=== PATIENT | male | born 1955 | race Caucasian/White ===

== ENCOUNTER 2018-12-23 09:51 | Inpatient (IN) ==
[2018-12-23] MEDS ORDERED: LORazepam 1 MG TABLET PO ONE (10:12)
[2018-12-23] MEDS ORDERED: POTASSIUM CHLORIDE 20 MEQ, MAGNESIUM SULFATE 16.24 MEQ, THIAMINE 100 MG, MVI, ADULT NO.... IV SCH (10:30)
[2018-12-23] MEDS ORDERED: LORazepam 2 MG/ML VIAL IV ONE ×2 (10:33→10:59)
[2018-12-23] MEDS ORDERED: 0.9 % SODIUM CHLORIDE 1,000 ML IV ONE (10:34)
[2018-12-23] MEDS ORDERED: ONDANSETRON 4 MG/2 ML VIAL IV ONE (10:51)
[2018-12-23 11:14] LABS: Basophils # (Auto) 0 K/mcL (0.0-0.3); Basophils % (Auto) 0.3 % (0.0-2.0); Eosinophils # (Auto) 0.1 K/mcL (0.0-0.7); Eosinophils % (Auto) 2.1 % (0.0-7.0); Granulocytes % (Auto) 72.7 % (38.0-78.0); Hematocrit 41.6 % (41.0-55.0); Hemoglobin 14.2 g/dL (13.5-16.5); Lymphocytes # (Auto) 0.7 K/mcL (1.5-4.8); Lymphocytes % (Auto) 15.1 % (15.5-49.0); Mean Cell Volume 96.5 fL (80.0-100.0); Mean Corpuscular HGB Conc 34.2 g/dL (31.0-36.0); Mean Platelet Volume 6.1 fL (7.4-10.4); Monocytes # (Auto) 0.4 K/mcL (0.1-0.9); Monocytes % (Auto) 9.8 % (1.0-12.0); Platelet Count 102 K/mcL (140-440); RBC 4.31 M/mcL (4.50-5.90); Red Cell Distribution Width 17.2 % (11.5-14.5); WBC 4.6 K/mcL (4.5-11.0)
[2018-12-23 11:23] LABS: Alcohol,Blood 0.11 gm/dl (<0.010)
[2018-12-23 11:33] LABS: ALT/SGPT 12 U/l (0-40); AST/SGOT 16 U/l (0-37); Albumin 3.6 gm/dL (3.2-5.2); Albumin/Globulin Ratio 1.5 (1.0-2.3); Alkaline Phosphatase 72 U/L (39-117); Bilirubin,Total 0.7 mg/dL (0.0-1.0); Blood Urea Nitrogen 12 mg/dl (8-23); Calcium 8.3 mg/dl (8.6-10.4); Carbon Dioxide 20 mmol/L (22-30); Chloride 102 mmol/L (96-108); Globulin 2.4 gm/dL (2.2-3.7); Glomerular Filtration Rate 58; Glucose 129 mg/dL (70-105)
--- NOTE | 2018-12-23 11:51 | Emergency Department Note ---
Alcohol HPI - General Chief Complaint: Alcohol Stated Complaint: "Alcohol Withdrawal" Time Seen by Provider: 12/23/18 10:00 Source: patient Mode of arrival: ambulatory Limitations: no limitations - History of Present Illness HPI Narrative: 63-year-old male presents requesting help for alcohol withdrawal. Has severe tremors. States he was seizing all night so he took a couple shots of alcohol this morning to be able to get himself to come here. States he is been cutting back on drinking for the last week especially the last 5 days. Was seen at [facility] yesterday. They set him up with an appointment with a new data processing specialist however he cannot get into see her until January 03. States he needs help in the meantime and does not know where to go. Has nausea and vomiting, tremors, and seizures. This is all new since trying to stop drinking alcohol. States he normally drinks at least 1/5 a day. He is tired of being an alcoholic and feeling the way he does not really wants to stop drinking. States someone gave him a couple tabs of Ativan for his nausea but he only has one left and he has been trying to spread them out every couple days to get through because he only had 3 of them and that does seem to help his nausea little bit but not with the tremors or seizures. Apparently he only had three 1 mg tablets. - Related Data Home Medications Medication Instructions Recorded Confirmed Hydrocodone/APAP 7.5/325Mg [[place] 1 - 2 tab PO Q4HP PRN 05/24/15 05/24/15 7.5-325Mg] Lisinopril [Zestril] 10 mg PO HS 05/24/15 05/24/15 Lisinopril/Hctz 20/12.5MG 1 tablet PO DAILY 05/24/15 05/24/15 [Zestoretic 20/12.5MG] Omeprazole [PriLOSEC] 20 mg PO ACB 05/24/15 05/24/15 Venlafaxine [Effexor] 75 mg PO BID 05/24/15 05/24/15 traZODone HCL [Desyrel] 100 mg PO HS 05/24/15 05/24/15 Previous Rx's Medication Instructions Recorded LORazepam [Ativan] 1 mg PO Q4HP PRN #10 tab 05/23/18 Ondansetron [Zofran ODT] 4 mg SL Q4-6HP PRN #10 tab 05/23/18 Pantoprazole [Protonix] 40 mg PO ONCE #10 tab 05/23/18 LORazepam [Ativan] 1 mg PO TIDP PRN #10 tab 12/08/18 Allergies Allergy/AdvReac Type Severity Reaction Status Date / Time prednisone Allergy Mild Other Verified 12/23/18 09:53 Review of Systems All systems ED: reviewed and negative except as stated. Past Medical History - Past Medical History Medical history: Reports: GERD, hypertension, other (psoriasis, C. difficile) Surgical history ED: Reports: other (Abdominal surgery unclear kind, he has multiple hernias) - Social History smoking status: Former smoker Alcohol use: Reports: Frequently, Daily, Recent Drug use: Reports: marijuana Physical Exam Limitations: no limitations General appearance: alert Head: atraumatic, normocephalic, normal inspection Eye: Present: normal appearance. Absent: conjunctival injection ENT: Present: mucous membranes moist Chest: Present: symmetric chest wall rise Respiratory: Present: normal lung sounds bilaterally. Absent: respiratory distress, rales/crackles, accessory muscle use Cardiovascular: Present: tachycardia, normal heart sounds Abdominal: Present: soft, normal bowel sounds. Absent: distention, tenderness, guarding, mass Extremities: Present: normal inspection Neurological: Present: alert, oriented X3, other (Severe tremors) Patient oriented to: Present: person, place, time Speech: Present: fluid speech Coma Scale Eye Opening: Spontaneous Coma Scale Motor Response: Obeys Commands Coma Scale Verbal Response: Oriented Coma Scale Total: 15 Psychiatric: Present: flat affect, tearful. Absent: homicidal ideation, suicidal ideation Skin: Present: warm, dry, intact, normal color Course Course Narrative: @123 Dr. Cee agrees to accept pt Vital Signs Temperature 97.9 F 12/23/18 09:53 Pulse Rate 109 H 12/23/18 09:53 Respiratory Rate 22 12/23/18 09:53 Blood Pressure 142/89 12/23/18 09:53 Pulse Oximetry (%) 98 12/23/18 09:53 Temperature 97.9 F 12/23/18 09:53 Pulse Rate 89 12/23/18 12:30 Respiratory Rate 22 12/23/18 12:30 Blood Pressure 125/84 12/23/18 12:15 Pulse Oximetry (%) 97 12/23/18 12:30 Alcohol - Medical Records Medical records reviewed: Yes I reviewed the patient's medical records. - Lab Data Result diagrams: 12/23/18 10:28 12/23/18 10:28 Lab Results 12/23/18 12/23/18 12/23/18 Range/Units 10:28 10:28 10:28 WBC 4.6 (4.5-11.0) K/mcL RBC 4.31 L (4.50-5.90) M/mcL Hgb 14.2 (13.5-16.5) g/dL Hct 41.6 (41.0-55.0) % MCV 96.5 (80.0-100.0) fL MCH 33.0 (26.0-34.0) pg MCHC 34.2 (31.0-36.0) g/dL RDW 17.2 H (11.5-14.5) % Plt Count 102 L (140-440) K/mcL MPV 6.1 L (7.4-10.4) fL Gran % 72.7 (38.0-78.0) % Lymph % (Auto) 15.1 L (15.5-49.0) % [place] % (Auto) 9.8 (1.0-12.0) % Eos % (Auto) 2.1 (0.0-7.0) % Baso % (Auto) 0.3 (0.0-2.0) % Gran # 3.3 (1.8-8.0) K/mcL Lymph # (Auto) 0.7 L (1.5-4.8) K/mcL [place] # (Auto) 0.4 (0.1-0.9) K/mcL Eos # (Auto) 0.1 (0.0-0.7) K/mcL Baso # (Auto) 0 (0.0-0.3) K/mcL Sodium 139 (133-145) mmol/L Potassium 3.7 (3.3-5.1) mmol/L Chloride 102 (96-108) mmol/L Carbon Dioxide 20 L (22-30) mmol/L Anion Gap 17.0 H (8-16) BUN 12 (8-23) mg/dl Creatinine 1.3 H (0.7-1.2) mg/dl GFR Calculation 58 Glucose 129 H (70-105) mg/dL Calcium 8.3 L (8.6-10.4) mg/dl Magnesium 1.9 (1.6-2.5) mg/dL Total Bilirubin 0.7 (0.0-1.0) mg/dL AST 16 (0-37) U/l ALT 12 (0-40) U/l Alkaline Phosphatase 72 (39-117) U/L Troponin T (0-0.03) ng/ml Total Protein 6.0 (5.9-8.4) gm/dL Albumin 3.6 (3.2-5.2) gm/dL Globulin 2.4 (2.2-3.7) gm/dL Albumin/Globulin Ratio 1.5 (1.0-2.3) Lipase 19 (7-60) U/L Urine Color Urine Appearance Urine pH (5.0-9.0) Ur Specific [place] (1.000-1.035) Urine Protein (NEG) mg/dL Urine Glucose (UA) (NEG) mg/dL Urine Ketones (NEG) mg/dL Urine Occult Blood (<0.03) mg/dL Urine Nitrate (NEG) Urine Bilirubin (NEG) mg/dL Urine Urobilinogen (NEG) mg/dL Ur Leukocyte Esterase (NEG) /uL Ur Culture Indicated? Urine Opiates Screen (NONDETECTED) Ur Oxycodone Screen (NONDETECTED) Urine Methadone Screen (NONDETECTED) Ur Barbiturates Screen (NONDETECTED) Ur Phencyclidine Scrn (NONDETECTED) Ur Amphetamines Screen (NONDETECTED) U Benzodiazepines Scrn (NONDETECTED) Urine Cocaine Screen (NONDETECTED) U Marijuana (THC) Screen (NONDETECTED) Ethyl Alcohol 0.110 H (<0.010) gm/dl 12/23/18 12/23/18 12/23/18 Range/Units 10:28 11:45 11:45 WBC (4.5-11.0) K/mcL RBC (4.50-5.90) M/mcL Hgb (13.5-16.5) g/dL Hct (41.0-55.0) % MCV (80.0-100.0) fL MCH (26.0-34.0) pg MCHC (31.0-36.0) g/dL RDW (11.5-14.5) % Plt Count (140-440) K/mcL MPV (7.4-10.4) fL Gran % (38.0-78.0) % Lymph % (Auto) (15.5-49.0) % [place] % (Auto) (1.0-12.0) % Eos % (Auto) (0.0-7.0) % Baso % (Auto) (0.0-2.0) % Gran # (1.8-8.0) K/mcL Lymph # (Auto) (1.5-4.8) K/mcL [place] # (Auto) (0.1-0.9) K/mcL Eos # (Auto) (0.0-0.7) K/mcL Baso # (Auto) (0.0-0.3) K/mcL Sodium (133-145) mmol/L Potassium (3.3-5.1) mmol/L Chloride (96-108) mmol/L Carbon Dioxide (22-30) mmol/L Anion Gap (8-16) BUN (8-23) mg/dl Creatinine (0.7-1.2) mg/dl GFR Calculation Glucose (70-105) mg/dL Calcium (8.6-10.4) mg/dl Magnesium (1.6-2.5) mg/dL Total Bilirubin (0.0-1.0) mg/dL AST (0-37) U/l ALT (0-40) U/l Alkaline Phosphatase (39-117) U/L Troponin T < 0.01 (0-0.03) ng/ml Total Protein (5.9-8.4) gm/dL Albumin (3.2-5.2) gm/dL Globulin (2.2-3.7) gm/dL Albumin/Globulin Ratio (1.0-2.3) Lipase (7-60) U/L Urine Color Yellow Urine Appearance Clear Urine pH 6.0 (5.0-9.0) Ur Specific [place] 1.017 (1.000-1.035) Urine Protein Neg (NEG) mg/dL Urine Glucose (UA) Negative (NEG) mg/dL Urine Ketones Neg (NEG) mg/dL Urine Occult Blood Neg (<0.03) mg/dL Urine Nitrate Neg (NEG) Urine Bilirubin Neg (NEG) mg/dL Urine Urobilinogen 2.0 A (NEG) mg/dL Ur Leukocyte Esterase Neg (NEG) /uL Ur Culture Indicated? No Urine Opiates Screen None detected (NONDETECTED) Ur Oxycodone Screen None detected (NONDETECTED) Urine Methadone Screen None detected (NONDETECTED) Ur Barbiturates Screen None detected (NONDETECTED) Ur Phencyclidine Scrn None detected (NONDETECTED) Ur Amphetamines Screen None detected (NONDETECTED) U Benzodiazepines Scrn None detected (NONDETECTED) Urine Cocaine Screen None detected (NONDETECTED) U Marijuana (THC) Screen Suspect positive A (NONDETECTED) Ethyl Alcohol (<0.010) gm/dl Disposition Pt seen by PROCESS EQUIPMENT OPERATOR/PA only: Yes Clinical Impression: Alcohol withdrawal delirium, Alcohol dependence Disposition: Xfer As Inpt ([facility]) Condition: Serious Referrals: Nikki Bee ARNP [Primary Care Provider] - Time of Disposition: 12:35
[2018-12-23 12:19] LABS: Appearance,Urine CLEAR; Bilirubin,Urine NEG (NEG); Color,Urine YELLOW; Culture Indicated,Urine NO; Glucose,Urine (UA) NEGATIVE (NEG); Ketones,Urine NEG (NEG); Leukocyte Esterase,Urine NEG /uL (NEG); Nitrate,Urine NEG (NEG); Protein,Urine NEG (NEG); Specific Gravity,Urine 1.017 (1.000-1.035); Urine Blood NEG mg/dL (<0.03)
[2018-12-23 12:31] LABS: Amphetamine Screen,Urine NONE DETECTED (NONDETECTED); Barbiturate Screen,Urine NONE DETECTED (NONDETECTED); Benzodiazepines Screen,Urine NONE DETECTED (NONDETECTED); Cannabinoid Screen,Urine SUSPECT POSITIVE (NONDETECTED); Cocaine Screen,Urine NONE DETECTED (NONDETECTED); Opiate Screen,Urine NONE DETECTED (NONDETECTED); Oxycodone, Urine Screen NONE DETECTED (NONDETECTED); Phencyclidine Screen,Urine NONE DETECTED (NONDETECTED)
--- NOTE | 2018-12-23 12:42 | Emergency Department Note ---
ED Note Addendum Note Addendum: I saw this patient with Julisa ZAVALA. I agree with her evaluation management documentation. In particular I saw this patient on 08 December and he had talked about cutting back on alcohol withdrawal type symptoms. I given him some Ativan. I reviewed that note. Anyways, today he came back and again was withdrawing but was having some trouble at home seizures. It does sound like he will need to come in the hospital for further evaluation and care for complicated withdrawal symptoms of alcohol. He does want to stop drinking. Patient was treated here in the ER, I did briefly visit with him, and then he would be transferred to the floor to the care of Dr. Jaime, hospitalist
--- NOTE | 2018-12-23 12:44 | Internal Med History&Physical ---
Medical - H&P: [facility] Patient information: Note initiated : 12/23/18 at 12:41 pm Service Date, if different from initiated Date: [] Patient: Elliott Traylor a 63 y/o M admitted on for "Alcohol Withdrawal". Chief Complaint: [] Chief complaint: Tremors and weakness History of present illness: Mr. Traylor is a 63 year old M with a history of long-standing alcohol dependence who presents to the ER for voluntary assistance with alcohol withdrawal. Patient has been drinking 1/5 of spiced rum every day. He however has become extremely distressed about his symptoms of withdrawal including tremors shaking nausea. He had a fall recently sustained a head injury which was evaluated in ER. He was at [facility] the day prior to presentation to help with withdrawal symptoms and was discharged on oral Ativan/antiemetics. He however was unable to cope with continued hallucinations/tremors/irritability and endorses to multiple episodes of seizures last night. He appears highly motivated to quit drinking and endorses that he has successfully done so in the recent past from May until September until he relapsed again. He denies family support, he lives alone. Initial work-up in the ER was essentially unremarkable. Patient was started on CIWA protocol with initial score 18. Review of systems 10 point review of system was performed and is negative except for one discussed above Medical - H&P: PM Medical history: History of duodenal ulcer Chronic alcoholism Posttraumatic stress disorder Hypertension History of C. difficile Anxiety disorder GERD Surgical history: Duodenal ulcer repair Knee surgery Smoking status: Current every day smoker Alcohol use: heavy Medical - H&P: Meds Home Medications Medication Instructions Recorded Confirmed Type Omeprazole [PriLOSEC] 20 mg PO ACB 05/24/15 12/23/18 History LORazepam [Ativan] 1 mg PO Q4HP PRN #10 tab 05/23/18 12/23/18 Rx Ondansetron [Zofran ODT] 4 mg SL Q4-6HP PRN #10 tab 05/23/18 12/23/18 Rx Folic Acid 1 mg PO DAILY 12/23/18 12/23/18 History Lisinopril/Hydrochlorothiazide 1 each PO DAILY 12/23/18 12/23/18 History [Lisinopril-Hctz 10-12.5 mg Tab] busPIRone [Buspar] 5 mg PO BID 12/23/18 12/23/18 History hydrOXYzine [Atarax] 25 mg PO TID 12/23/18 12/23/18 History Allergies Allergy/AdvReac Type Severity Reaction Status Date / Time prednisone Allergy Mild Other Verified 12/23/18 09:53 Medical - H&P: Exam - Constitutional Vitals: Temp Pulse Resp BP Pulse Ox 97.9 F 89 22 125/84 97 12/23/18 09:53 12/23/18 12:30 12/23/18 12:30 12/23/18 12:15 12/23/18 12:30 General appearance: moderate distress Exam: Head normocephalic Scaly scalp Lateral nystagmus but symmetrical eye movement Oral cavity dry No ear nose discharge Neck no lymph apathy S1-S2 regular rhythm Diminished breath sounds bases Abdomen soft nontender Lower extremity no sinus clubbing no joint swelling Skin no suspicious lesion Psych anxious and tremulous, occasional visual estimation Neuro nonfocal Medical - H&P: Reslt - Labs CBC & Chem 7: 12/24/18 03:30 12/24/18 03:30 Labs: Short CBC 12/23/18 Range/Units 10:28 WBC 4.6 (4.5-11.0) K/mcL Hgb 14.2 (13.5-16.5) g/dL Hct 41.6 (41.0-55.0) % Plt Count 102 L (140-440) K/mcL BMP 12/23/18 10:28 Sodium 139 Potassium 3.7 Chloride 102 Carbon Dioxide 20 L BUN 12 Creatinine 1.3 H Glucose 129 H Calcium 8.3 L Cardiac Enzymes 12/23/18 Range/Units 10:28 Troponin T < 0.01 (0-0.03) ng/ml Liver Function 12/23/18 Range/Units 10:28 Total Bilirubin 0.7 (0.0-1.0) mg/dL AST 16 (0-37) U/l ALT 12 (0-40) U/l Alkaline Phosphatase 72 (39-117) U/L Albumin 3.6 (3.2-5.2) gm/dL Urine 12/23/18 Range/Units 11:45 Urine Color Yellow Urine Appearance Clear Urine pH 6.0 (5.0-9.0) Ur Specific [place] 1.017 (1.000-1.035) Urine Protein Neg (NEG) mg/dL Urine Glucose (UA) Negative (NEG) mg/dL Medical - H&P: A/P (1) Delirium tremens Current visit: Yes Status: Acute * Delirium tremens-alcohol withdrawal management per protocol. Seizure watch/IV benzodiazepines/elect light management/crystalloids. ICU admit * History of hypertension-continue home dose MONSE inhibitor * History of peptic ulcer disease continue PPI * Tobacco dependence-counseling/patch * Full code * Prophylaxis heparin Plan * ICU admit in the setting of DT * Alcohol withdrawal monitoring * Seizure watch * Nutrition support * PT OT (2) Alcohol withdrawal delirium Current visit: Yes Status: Acute
[2018-12-23] MEDS ORDERED: guaiFENesin/CODEINE 10 ML UDC PO PRN (13:33)
[2018-12-23] MEDS ORDERED: POTASSIUM CHLORIDE 40 MEQ in DEXTROSE 5% IN WATER 500 ML IV PRN (13:33)
[2018-12-23] MEDS ORDERED: ONDANSETRON 4 MG/2 ML VIAL IV PRN (13:33)
[2018-12-23] MEDS ORDERED: MAGNESIUM SULFATE 2 GM/50 ML BAG IV PRN (13:33)
[2018-12-23] MEDS ORDERED: POTASSIUM CHLORIDE 20 MEQ PACKET PO PRN (13:33)
[2018-12-23] MEDS ORDERED: LORazepam 2 MG/ML VIAL ONE (13:51)
[2018-12-23] MEDS: 0.9 % SODIUM CHLORIDE 1,000 ML IV SCH (13:53)
[2018-12-23] MEDS: LORazepam 2 MG/ML VIAL IV PRN ×5 (13:53→21:27)
[2018-12-23] MEDS: ACETAMINOPHEN 325 MG TABLET PO PRN (14:24)
[2018-12-23] MEDS: 0.9 % SODIUM CHLORIDE 10 ML SYRINGE IV SCH ×4 (14:25→23:15)
[2018-12-23] MEDS: chlordiazePOXIDE 25 MG CAPSULE PO PRN ×3 (14:25→23:51)
[2018-12-23] MEDS: cloNIDine HCL 0.1 MG TABLET PO PRN (14:35)
[2018-12-23] MEDS: HEPARIN 5,000 UNIT/ML VIAL SQ SCH (19:17)
[2018-12-23] MEDS: DOCUSATE SODIUM 100 MG CAPSULE PO SCH (19:18)
[2018-12-23] MEDS: CYANOCOBALAMIN (VITAMIN B-12) 500 MCG TABLET PO SCH (19:19)
[2018-12-23] MEDS ORDERED: SENNOSIDES/DOCUSATE SODIUM 1 TAB TABLET PO SCH (21:00)
[2018-12-24] MEDS: LORazepam 2 MG/ML VIAL IV PRN (02:16)
[2018-12-24] MEDS: 0.9 % SODIUM CHLORIDE 1,000 ML IV SCH ×2 (02:21→14:09)
[2018-12-24] MEDS: chlordiazePOXIDE 25 MG CAPSULE PO PRN ×2 (03:59→09:00)
[2018-12-24] MEDS: 0.9 % SODIUM CHLORIDE 10 ML SYRINGE IV SCH ×7 (05:15→21:21)
[2018-12-24 05:36] LABS: Hematocrit 37.2 % (41.0-55.0); Hemoglobin 12.7 g/dL (13.5-16.5); Mean Cell Volume 97.7 fL (80.0-100.0); Mean Corpuscular HGB Conc 34.2 g/dL (31.0-36.0); Mean Platelet Volume 6.7 fL (7.4-10.4); Platelet Count 83 K/mcL (140-440); RBC 3.81 M/mcL (4.50-5.90); Red Cell Distribution Width 17.1 % (11.5-14.5); WBC 3.2 K/mcL (4.5-11.0)
[2018-12-24 05:54] LABS: ALT/SGPT 10 U/l (0-40); AST/SGOT 12 U/l (0-37); Albumin/Globulin Ratio 1.4 (1.0-2.3); Alkaline Phosphatase 70 U/L (39-117); Bilirubin,Direct < 0.2 mg/dL (0.0-0.3); Bilirubin,Total 0.5 mg/dL (0.0-1.0); Blood Urea Nitrogen 11 mg/dl (8-23); Calcium 8.1 mg/dl (8.6-10.4); Carbon Dioxide 23 mmol/L (22-30); Chloride 107 mmol/L (96-108); Globulin 2.2 gm/dL (2.2-3.7); Glomerular Filtration Rate 64; Glucose 138 mg/dL (70-105); Lactate Dehydrogenase 161 U/L (94-250); Phosphorous 2.5 mg/dL (2.7-4.5); Triglycerides 198 mg/dl (<150); Uric Acid 4.7 mg/dL (2.5-8.0)
[2018-12-24 06:32] LABS: Anisocytosis 1+ (NONE SEEN); Band Neutrophils % 2 % (0-10); Basophils % (Manual) 1 % (0-2); Eosinophils % (Manual) 12 % (0-7); Lymphocytes % 22 % (15-49); Monocytes % (Manual) 9 % (1-12); Platelet Estimate DECREASED (NORMAL); RBC Morphology ABNORM (NORMAL); Segmented Neutrophils % 54 % (38-78)
[2018-12-24] MEDS ORDERED: FOLIC ACID 1 MG TABLET PO SCH (09:00)
[2018-12-24] MEDS ORDERED: MULTIVIT,THER IRON,CA,FA & MIN 1 TABLET PO SCH (09:00)
[2018-12-24] MEDS ORDERED: THIAMINE 100 MG in 0.9 % SODIUM CHLORIDE 50 ML IV SCH (09:00)
[2018-12-24] MEDS: CYANOCOBALAMIN (VITAMIN B-12) 500 MCG TABLET PO SCH ×2 (09:00→20:13)
[2018-12-24] MEDS: ACETAMINOPHEN 325 MG TABLET PO PRN ×2 (09:00→22:04)
[2018-12-24] MEDS: HEPARIN 5,000 UNIT/ML VIAL SQ SCH ×3 (09:00→20:16)
[2018-12-24] MEDS: cloNIDine HCL 0.1 MG TABLET PO PRN (09:00)
[2018-12-24] MEDS: DOCUSATE SODIUM 100 MG CAPSULE PO SCH ×2 (09:01→20:14)
--- NOTE | 2018-12-24 09:23 | Internal Med Progress Note ---
Medical - PN: Subj Patient information: Note initiated : 12/24/18 at 9:21 am Service Date, if different from initiated Date: [] Patient: Elliott Traylor 63 y/o M admitted on 12/23/18 for "Alcohol Withdrawal". Chief Complaint: [] Interval history: Mr. Traylor is a 63 year old M with a history of long-standing alcohol dependence who presents to the ER for voluntary assistance with alcohol withdrawal. Patient has been drinking 1/5 of spiced rum every day. He however has become extremely distressed about his symptoms of withdrawal including tremors shaking nausea. He had a fall recently sustained a head injury which was evaluated in ER. He was at [facility] the day prior to presentation to help with withdrawal symptoms and was discharged on oral Ativan/antiemetics. He however was unable to cope with continued hallucinations/tremors/irritability and endorses to multiple episodes of seizures last night. He appears highly motivated to quit drinking and endorses that he has successfully done so in the recent past from May until September until he relapsed again. He denies family support, he lives alone. Initial work-up in the ER was essentially unremarkable. Patient was started on CIWA protocol with initial score 18. 8/27-patient doing remarkably well on alcohol withdrawal protocol. Stable he modynamics with improved psychomotor agitation/tremors/hallucinations. Continuing multivitamins/crystalloids and nutrition support. Continue PT OT. Transition to medical floor today. No overnight telemetry events. - Constitutional Vitals: Vital Signs Temp Pulse Resp BP Pulse Ox 98.4 F 91 H 29 H 155/106 97 12/24/18 04:02 12/24/18 07:45 12/24/18 07:45 12/24/18 07:45 12/24/18 07:45 Period Temp Pulse Resp BP Sys/Killian Pulse Ox Last 24 Hr 97.9 F-98.7 F 77-125 0-29 98-164/66-139 92-100 Intake and Output 12/23/18 12/24/18 12/24/18 21:59 05:59 13:59 Intake Total 960 1175 Output Total 1 400 Balance 959 775 Weight 234 lb 12.8 oz Intake & Output: Intake & Output 12/23/18 12/24/18 12/24/18 21:59 05:59 13:59 Intake Total 960 1175 Output Total 1 400 Balance 959 775 Weight 234 lb 12.8 oz Intake: IV 935 Sodium Chloride 0.9% 1,000 ml @ 935 75 mls/hr IV .[id number] [facility] Rx#: [id number] Oral 960 240 Output: Void Amount 400 # of times incontinent of urine 1 Other: Meal Dinner Percent of Meal Consumed 100% Feeding Ability Assist with Tray Set Up Urine Appearance Clear Urine Color Light Trina General appearance: no acute distress Exam: Alert oriented nonlabored breathing No telemetry events Nondistended abdomen Minimal anxiety Medical - PN: Obj Da - Labs CBC & Chem 7: 12/24/18 03:30 12/24/18 03:30 Labs: Abnormal Lab Results 12/24/18 12/24/18 12/23/18 03:30 03:30 11:45 WBC 3.2 L RBC 3.81 L Hgb 12.7 L Hct 37.2 L RDW 17.1 H Plt Count 83 L MPV 6.7 L Lymph % (Auto) Lymph # (Auto) Eosinophils % (Manual) 12 H Platelet Estimate Decreased A RBC Morphology Abnorm A Anisocytosis 1+ A Carbon Dioxide Anion Gap Creatinine Glucose 138 H Calcium 8.1 L Phosphorus 2.5 L Total Protein 5.2 L Albumin 3.0 L Triglycerides 198 H Urine Urobilinogen 2.0 A U Marijuana (THC) Screen Ethyl Alcohol 12/23/18 12/23/18 12/23/18 11:45 10:28 10:28 WBC RBC Hgb Hct RDW Plt Count MPV Lymph % (Auto) Lymph # (Auto) Eosinophils % (Manual) Platelet Estimate RBC Morphology Anisocytosis Carbon Dioxide 20 L Anion Gap 17.0 H Creatinine 1.3 H Glucose 129 H Calcium 8.3 L Phosphorus Total Protein Albumin Triglycerides Urine Urobilinogen U Marijuana (THC) Screen Suspect positive A Ethyl Alcohol 0.110 H 12/23/18 10:28 WBC RBC 4.31 L Hgb Hct RDW 17.2 H Plt Count 102 L MPV 6.1 L Lymph % (Auto) 15.1 L Lymph # (Auto) 0.7 L Eosinophils % (Manual) Platelet Estimate RBC Morphology Anisocytosis Carbon Dioxide Anion Gap Creatinine Glucose Calcium Phosphorus Total Protein Albumin Triglycerides Urine Urobilinogen U Marijuana (THC) Screen Ethyl Alcohol Meds: Medications Acetaminophen (Tylenol) 650 mg PO Q4-6HP PRN PRN Reason: PAIN/FEVER > 101 Last Admin: 12/24/18 09:00 Dose: 650 mg Documented by: Chlordiazepoxide HCl (Librium) 50 mg PO Q4HP PRN PRN Reason: Alcohol Withdrawal Last Admin: 12/24/18 09:00 Dose: 50 mg Documented by: Clonidine HCl (Catapres) 0.1 mg PO Q4HP PRN PRN Reason: Alcohol Withdrawal Last Admin: 12/24/18 09:00 Dose: 0.1 mg Documented by: Cyanocobalamin (Vitamin B-12) 1,000 mcg PO BID [facility] Stop: 12/28/18 09:01 Last Admin: 12/24/18 09:00 Dose: 1,000 mcg Documented by: Docusate Sodium (Colace) 100 mg PO BID [facility] Last Admin: 12/24/18 09:01 Dose: Not Given Documented by: Folic Acid (Folic Acid) 1 mg PO DAILY [facility] Last Admin: 12/24/18 09:01 Dose: 1 mg Documented by: Guaifenesin/Codeine Phosphate (Robitussin Ac) 10 ml PO Q4HP PRN PRN Reason: Cough Heparin Sodium (Porcine) (Heparin) 5,000 unit SQ Q12 [facility] Last Admin: 12/24/18 09:00 Dose: 5,000 unit Documented by: Potassium Chloride 40 meq/ (Dextrose) 520 mls @ 130 mls/hr IV UD PRN PRN Reason: K+ = or < 3.5 Magnesium Sulfate (Magnesium Sulfate) 2 gm in 50 mls @ 50 mls/hr IV UD PRN PRN Reason: MG = or < 1.7 Sodium Chloride (Sodium Chloride 0.9%) 1,000 mls @ 75 mls/hr IV .[id number] [facility] Stop: 12/27/18 10:52 Last Admin: 12/24/18 02:21 Dose: 75 mls/hr Documented by: Thiamine HCl 100 mg/ Sodium (Chloride) 51 mls @ 50 mls/hr IV DAILY [facility] Stop: 12/26/18 10:02 Iron Carb/Multivit/In Mold Coater/Folic Acid (Multivitamin W/Minerals) 1 tab PO DAILY [facility] Last Admin: 12/24/18 09:00 Dose: 1 tab Documented by: Lorazepam (Ativan) 0 mg IV Q4HP PRN; Protocol PRN Reason: Alcohol Withdrawal Last Admin: 12/24/18 02:16 Dose: 3 mg Documented by: Ondansetron HCl (Zofran) 4 mg IV Q4-6HP PRN PRN Reason: Nausea And Vomiting Last Admin: 12/23/18 14:25 Dose: 4 mg Documented by: Potassium Chloride (Klor-Con) 40 meq PO DAILYP PRN PRN Reason: K+ < 3.5 Senna/Docusate Sodium (Senna Plus Tablet) 1 tab PO HS [facility] Last Admin: 12/23/18 19:18 Dose: Not Given Documented by: Sodium Chloride (Saline Flush) 10 ml IV Q8 [facility] Last Admin: 12/24/18 05:16 Dose: 10 ml Documented by: Sodium Chloride (Saline Flush) 10 ml IV Q8 [facility] Last Admin: 12/24/18 05:16 Dose: Not Given Documented by: Medical - PN: A/P - Time Spent With Patient Total time spent is greater than 50% in coordination of care (as documented) at patient's floor/unit and/or counseling patient: 25 - 35 minutes (1) Delirium tremens Status: Acute Assessment and plan: * Severe alcohol withdrawal with delirium tremens-clinically improved with management per protocol. Minimal psychomotor agitation/restlessness. Hallucination resolved. Transition to medical floor. * History of hypertension-stable on home dose MONSE inhibitor * History of peptic ulcer disease continue PPI * Tobacco dependence-continue counseling/patch if needed * Full code * Prophylaxis heparin Plan * Transfer to medical floor * Continue alcohol withdrawal management per protocol * Nutrition support * PT OT * Discharge planning per case management Current Visit: Yes (2) Alcohol withdrawal delirium Status: Acute Current Visit: Yes Medical - PN: Qual - VTE Deep Vein Thrombosis/Pulmonary Embolism Present on Admission: No
[2018-12-24] MEDS ORDERED: MAGNESIUM SULFATE 2 GM/50 ML BAG IV PRN (12:32)
[2018-12-24] MEDS ORDERED: LORazepam 2 MG/ML VIAL IV PRN (12:32)
[2018-12-24] MEDS ORDERED: POTASSIUM CHLORIDE 20 MEQ PACKET PO PRN (12:32)
[2018-12-24] MEDS ORDERED: guaiFENesin/CODEINE 10 ML UDC PO PRN (12:32)
[2018-12-24] MEDS ORDERED: POTASSIUM CHLORIDE 40 MEQ in DEXTROSE 5% IN WATER 500 ML IV PRN (12:32)
[2018-12-24] MEDS ORDERED: cloNIDine HCL 0.1 MG TABLET PO PRN (12:32)
[2018-12-24] MEDS ORDERED: chlordiazePOXIDE 25 MG CAPSULE PO PRN (12:32)
[2018-12-24] MEDS ORDERED: chlordiazePOXIDE 25 MG CAPSULE PO ONE (13:30)
[2018-12-24] MEDS: DIAZEPAM 10 MG TABLET PO PRN ×8 (14:21→23:46)
--- NOTE | 2018-12-24 14:41 | Behavioral Health Consult ---
History of Present Illness Patient information: Note initiated : 12/24/18 at 2:30 pm Service Date, if different from initiated Date: [] Patient: Elliott Traylor 63 y/o M admitted on 12/23/18 for "Alcohol Withdrawal". Chief Complaint: [] Requesting Physician: Yariel Jaime Chief complaint: "need to quit alcohol" History of present illness: Patient is a pleasant 63 year old male, admitted on 12/23, after being sent by [facility] for treatment of alcohol withdrawal. Patient reportedly has been treated at [facility] for a fall secondary to intoxication from alcohol. He reports hitting his head but denies LOC. Patient has long-standing history of alcohol use since age 21. He is not able to provide me any details as to the amounts he would drink. He states his alcohol use significantly increased in 1976 after his from cancer. He has been drinking 1/5 of whisky a day. Prior to coming to ED, he was given Ativan 1mg for 10 days 4 tabs by Abram Henriquez. He reports having tremors, visual halluincations, difficulty sleeping, nausea which led him to seek treatment. He reports history of seizures but is unable to give me any specific information. Patient states that he had seizures in the past when trying to stop alcohol on his own. Reports complete sobriety from May 2018 to September 2018. Denies history of DT's. Board of pharmacy reveals multiple Rx of Librium, last on 06/24/18. Denies past/present suicidal or homicidal ideation. Denies auditory/visual/tactile hallucinations today. Admits to history of depression but its unclear whether he was treated. Overall, patient is a poor historian. He lives alone and states that he would like to reconnect with his son who lives in [place]. Patient denies use of other illicit substances, including THC. Denies use of tobacco. Review of System Constitutional: no anorexia, no chills, no fatigue, no fever(s), no frequent falls, no headache(s), no night sweats, no weakness, no weight gain, no weight loss Nose, mouth and throat: no abnormal hearing, no change in voice, no dental pain, no dizziness, no epistaxis, no headache(s), no hoarseness, no nasal congestion, no neck pain, no odynophagia, no sinus pain, no sore throat, no vertigo Cardiovascular: no chest pain, no diaphoresis, no dyspnea, no leg edema, no palpatations, no pedal edema, no syncope Respiratory: no cough, no dyspnea, no hemoptysis, no wheezing Gastrointestinal: no abdominal pain, no bloating, no change in bowel habits, no coffee ground emesis, no constipation, no diarrhea, no heartburn, no hematemesis, no hematochezia, no nausea, no vomiting Genitourinary: no dysuria, no flank pain, no urinary frequency Musculoskeletal: no abnormal gait, no arthralgias, no back pain, no joint swelling, no myalgias, no numbness, no radiating pain into limb, no stiffness Integumentary: no changing lesions, no erythema, no lesions, no photosensitivity, no rash, no sores, no swelling Neurological: frequent falls, tremor(s), no abnormal gait, no abnormal hearing, no abnormal movements, no abnormal speech, no behavioral changes, no confusion, no focal weakness, no headache(s), no memory loss, no numbness, no paresthesias, no syncope, no vertigo, no weakness, no other visual disturbances Psychiatric: anxiety, cravings, no abnormal sleep pattern, no auditory hallucinations, no change in appetite, no confusion, no depression, no hallucinations, no homicidal ideation, no memory loss, no suicidal ideation, no visual hallucinations, no tactile Endocrine: no cold intolerance, no polydipsia, no polyphagia Hematologic/Lymphatic: no easy bleeding, no easy bruising, no lymphadenopathy Allergic/Immunologic: no tongue swelling, no throat swelling, no lip swelling Past History Past social history: Social History No Social History Section defined Medications and Allergies Home Medications Medication Instructions Recorded Confirmed Type Omeprazole [PriLOSEC] 20 mg PO ACB 05/24/15 12/23/18 History LORazepam [Ativan] 1 mg PO Q4HP PRN #10 tab 05/23/18 12/23/18 Rx Ondansetron [Zofran ODT] 4 mg SL Q4-6HP PRN #10 tab 05/23/18 12/23/18 Rx Folic Acid 1 mg PO DAILY 12/23/18 12/23/18 History Lisinopril/Hydrochlorothiazide 1 each PO DAILY 12/23/18 12/23/18 History [Lisinopril-Hctz 10-12.5 mg Tab] busPIRone [Buspar] 5 mg PO BID 12/23/18 12/23/18 History hydrOXYzine [Atarax] 25 mg PO TID 12/23/18 12/23/18 History Allergies Allergy/AdvReac Type Severity Reaction Status Date / Time prednisone Allergy Mild Other Verified 12/23/18 09:53 Physical Examination Vital signs: Temp Pulse Resp BP Pulse Ox 98.4 F 87 18 126/80 98 12/24/18 12:30 12/24/18 12:30 12/24/18 12:30 12/24/18 12:30 12/24/18 12:30 General appearance: alert, agitated Eyes pulmonary: nonicteric ENT: oropharynx moist Neck: supple, no lymphadenopathy, no JVD Effort: normal Auscultation: bilateral: clear Cardiovascular: regular rate and rhythm Gastrointestinal: normoactive bowel sounds, non-tender, non-distended Integumentary: normal Extremities: no cyanosis, no edema, pulses normal Musculoskeletal: no deformities, ROM normal Gait: poor gait normal mental status, non-focal exam, pupils equal and round, CN II-XII normal, motor strength normal and symmetric anxious significant tremor upper extremities b/l; no lingual tremor noted and no nystagmus CIWA 18 Results - Laboratory Findings CBC and BMP: 12/24/18 03:30 12/24/18 03:30 Abnormal lab findings: Abnormal Labs 12/23/18 12/23/18 12/23/18 10:28 10:28 10:28 WBC RBC 4.31 L Hgb Hct RDW 17.2 H Plt Count 102 L MPV 6.1 L Lymph % (Auto) 15.1 L Lymph # (Auto) 0.7 L Eosinophils % (Manual) Platelet Estimate RBC Morphology Anisocytosis Carbon Dioxide 20 L Anion Gap 17.0 H Creatinine 1.3 H Glucose 129 H Calcium 8.3 L Phosphorus Total Protein Albumin Triglycerides Urine Urobilinogen U Marijuana (THC) Screen Ethyl Alcohol 0.110 H 12/23/18 12/23/18 12/24/18 11:45 11:45 03:30 WBC 3.2 L RBC 3.81 L Hgb 12.7 L Hct 37.2 L RDW 17.1 H Plt Count 83 L MPV 6.7 L Lymph % (Auto) Lymph # (Auto) Eosinophils % (Manual) 12 H Platelet Estimate Decreased A RBC Morphology Abnorm A Anisocytosis 1+ A Carbon Dioxide Anion Gap Creatinine Glucose Calcium Phosphorus Total Protein Albumin Triglycerides Urine Urobilinogen 2.0 A U Marijuana (THC) Screen Suspect positive A Ethyl Alcohol 12/24/18 03:30 WBC RBC Hgb Hct RDW Plt Count MPV Lymph % (Auto) Lymph # (Auto) Eosinophils % (Manual) Platelet Estimate RBC Morphology Anisocytosis Carbon Dioxide Anion Gap Creatinine Glucose 138 H Calcium 8.1 L Phosphorus 2.5 L Total Protein 5.2 L Albumin 3.0 L Triglycerides 198 H Urine Urobilinogen U Marijuana (THC) Screen Ethyl Alcohol Microbiology: Microbiology 12/23/18 13:15 Nose - Both Right and Left MRSA (PCR) - Final Alcohol Toxicology: ABG 12/23/18 10:28 Ethyl Alcohol 0.110 H Assessment and Plan (1) Alcohol withdrawal syndrome Status: Acute Qualifiers: Complication of substance-induced condition: with unspecified complication Qualified Code(s): F10.239 - Alcohol dependence with withdrawal, unspecified (2) Alcohol use disorder Status: Acute - Narrative A/P Narrative: Patient is in active withdrawal. Patient is under the care of Dr. Jaime, was recently moved from ICU to [facility]. Patient received 150mg librium one day ago and 50mg librium today as well as prn Ativan D/C Ativan CIWA q 1 HR Start Valium protocol prn CIWA score Start Thiamine, B complex daily f/u
[2018-12-24] MEDS: THIAMINE 100 MG TABLET PO SCH ×2 (15:04→20:14)
[2018-12-24] MEDS: ONDANSETRON 4 MG/2 ML VIAL IV PRN (19:12)
[2018-12-24] MEDS: VITAMIN B COMPLEX 1 CAPSULE PO SCH (20:13)
[2018-12-24] MEDS ORDERED: SENNOSIDES/DOCUSATE SODIUM 1 TAB TABLET PO SCH (21:00)
[2018-12-25] MEDS: DIAZEPAM 10 MG TABLET PO PRN ×9 (02:07→21:40)
[2018-12-25] MEDS: 0.9 % SODIUM CHLORIDE 10 ML SYRINGE IV SCH ×6 (04:04→21:30)
[2018-12-25] MEDS: 0.9 % SODIUM CHLORIDE 1,000 ML IV SCH ×3 (04:05→21:27)
[2018-12-25 05:39] LABS: Hemoglobin 12.5 g/dL (13.5-16.5); Mean Cell Volume 98.2 fL (80.0-100.0); Mean Corpuscular HGB Conc 33.7 g/dL (31.0-36.0); Mean Platelet Volume 6.6 fL (7.4-10.4); Platelet Count 69 K/mcL (140-440); RBC 3.77 M/mcL (4.50-5.90); Red Cell Distribution Width 17.5 % (11.5-14.5); WBC 3.4 K/mcL (4.5-11.0)
[2018-12-25] MEDS: ONDANSETRON 4 MG/2 ML VIAL IV PRN (05:39)
[2018-12-25 05:48] LABS: INR 1.1 (0.9-1.1); Prothrombin Time 13.9 sec (11.9-14.5)
[2018-12-25 05:56] LABS: ALT/SGPT 9 U/l (0-40); AST/SGOT 12 U/l (0-37); Albumin/Globulin Ratio 1.3 (1.0-2.3); Alkaline Phosphatase 75 U/L (39-117); Bilirubin,Direct < 0.2 mg/dL (0.0-0.3); Bilirubin,Total 0.4 mg/dL (0.0-1.0); Blood Urea Nitrogen 13 mg/dl (8-23); Calcium 8.8 mg/dl (8.6-10.4); Carbon Dioxide 22 mmol/L (22-30); Chloride 106 mmol/L (96-108); Globulin 2.4 gm/dL (2.2-3.7); Glomerular Filtration Rate 58; Glucose 129 mg/dL (70-105); Lactate Dehydrogenase 151 U/L (94-250); Phosphorous 3.1 mg/dL (2.7-4.5); Triglycerides 158 mg/dl (<150); Uric Acid 4.1 mg/dL (2.5-8.0)
[2018-12-25 06:10] LABS: Anisocytosis 1+ (NONE SEEN); Eosinophils % (Manual) 4 % (0-7); Lymphocytes % 28 % (15-49); Monocytes % (Manual) 6 % (1-12); Platelet Estimate DECREASED (NORMAL); RBC Morphology ABNORMAL (NORMAL); Reactive Lymphocytes 1 % (0-2); Segmented Neutrophils % 61 % (38-78)
[2018-12-25] MEDS: HEPARIN 5,000 UNIT/ML VIAL SQ SCH ×2 (08:06→21:29)
[2018-12-25] MEDS: CYANOCOBALAMIN (VITAMIN B-12) 500 MCG TABLET PO SCH ×2 (08:06→21:29)
[2018-12-25] MEDS: DOCUSATE SODIUM 100 MG CAPSULE PO SCH ×2 (08:07→21:29)
[2018-12-25] MEDS: VITAMIN B COMPLEX 1 CAPSULE PO SCH ×2 (08:07→21:29)
[2018-12-25] MEDS: THIAMINE 100 MG TABLET PO SCH ×3 (08:10→21:29)
[2018-12-25] MEDS ORDERED: THIAMINE 100 MG in 0.9 % SODIUM CHLORIDE 50 ML IV SCH (09:00)
[2018-12-25] MEDS ORDERED: MULTIVIT,THER IRON,CA,FA & MIN 1 TABLET PO SCH (09:00)
[2018-12-25] MEDS ORDERED: FOLIC ACID 1 MG TABLET PO SCH (09:00)
--- NOTE | 2018-12-25 10:20 | Internal Med Progress Note ---
Medical - PN: Subj Patient information: Note initiated : 12/25/18 at 10:15 am Service Date, if different from initiated Date: [] Patient: Elliott Traylor 63 y/o M admitted on 12/23/18 for "Alcohol Withdrawal". Chief Complaint: [] Interval history: Mr. Traylor is a 63 year old M with a history of long-standing alcohol dependence who presents to the ER for voluntary assistance with alcohol withdrawal. Patient has been drinking 1/5 of spiced rum every day. He however has become extremely distressed about his symptoms of withdrawal including tremors shaking nausea. He had a fall recently sustained a head injury which was evaluated in ER. He was at [facility] the day prior to presentation to help with withdrawal symptoms and was discharged on oral Ativan/antiemetics. He however was unable to cope with continued hallucinations/tremors/irritability and endorses to multiple episodes of seizures last night. He appears highly motivated to quit drinking and endorses that he has successfully done so in the recent past from May until September until he relapsed again. He denies family support, he lives alone. Initial work-up in the ER was essentially unremarkable. Patient was started on CIWA protocol with initial score 18. 12/24-patient doing remarkably well on alcohol withdrawal protocol. Stable h emodynamics with improved psychomotor agitation/tremors/hallucinations. Continuing multivitamins/crystalloids and nutrition support. Continue PT OT. Transition to medical floor today. No overnight telemetry events. 12/25-patient is doing a lot better. Alert to self. No significant psychomotor agitation or anxiety. Frequent hallucinations. CIWA scores between 6 and 29. Tolerating diet. Stable labs and hemodynamics. Anticipate discharge once clinically improved in the next 48 hours - Constitutional Vitals: Vital Signs Temp Pulse Resp BP Pulse Ox 97.7 F 81 20 131/86 97 12/25/18 07:26 12/25/18 07:26 12/25/18 07:26 12/25/18 07:26 12/25/18 07:26 Period Temp Pulse Resp BP Sys/Killian Pulse Ox Last 24 Hr 97.7 F-99.1 F 75-87 - 124-146/78-94 95-98 Intake and Output 12/24/18 12/25/18 12/25/18 21:59 05:59 13:59 Intake Total 1773 911 2694 Output Total 50 1350 600 Balance 1170 -450 510 Weight 239 lb Intake & Output: Intake & Output 12/24/18 12/25/18 12/25/18 21:59 05:59 13:59 Intake Total 5778 477 0485 Output Total 50 1350 600 Balance 1170 -450 510 Weight 239 lb Intake: IV 950 Sodium Chloride 0.9% 1,000 ml @ 950 75 mls/hr IV .[id number] [facility] Rx#: [id number] Oral 1220 900 160 Output: Void Amount 50 1350 600 Other: Meal Dinner Nourishment/Supplement Breakfast Percent of Meal Consumed 100% 100% 50% Feeding Ability Independent Independent Assist with Tray Set Up Nourishment/Supplement name Egg Salad [place], 1/2 Tuna [place] Urine Appearance Clear Clear Urine Color Dark Yellow Bright Yellow # Voids 1 1 General appearance: no acute distress Exam: Active hallucination but no significant psychomotor agitation Nonlabored breathing Nondistended abdomen No lymphedema Medical - PN: Obj Da - Labs CBC & Chem 7: 12/25/18 03:49 12/25/18 03:49 Labs: Abnormal Lab Results 12/25/18 12/25/18 12/24/18 03:49 03:49 03:30 WBC 3.4 L RBC 3.77 L Hgb 12.5 L Hct 37.0 L RDW 17.5 H Plt Count 69 L MPV 6.6 L Lymph % (Auto) Lymph # (Auto) Eosinophils % (Manual) Platelet Estimate Decreased A RBC Morphology Anisocytosis 1+ A Carbon Dioxide Anion Gap Creatinine 1.3 H Glucose 129 H 138 H Calcium 8.1 L Phosphorus 2.5 L Total Protein 5.4 L 5.2 L Albumin 3.0 L 3.0 L Triglycerides 158 H 198 H Urine Urobilinogen U Marijuana (THC) Screen Ethyl Alcohol 12/24/18 12/23/18 12/23/18 03:30 11:45 11:45 WBC 3.2 L RBC 3.81 L Hgb 12.7 L Hct 37.2 L RDW 17.1 H Plt Count 83 L MPV 6.7 L Lymph % (Auto) Lymph # (Auto) Eosinophils % (Manual) 12 H Platelet Estimate Decreased A RBC Morphology Abnorm A Anisocytosis 1+ A Carbon Dioxide Anion Gap Creatinine Glucose Calcium Phosphorus Total Protein Albumin Triglycerides Urine Urobilinogen 2.0 A U Marijuana (THC) Screen Suspect positive A Ethyl Alcohol 12/23/18 12/23/18 12/23/18 10:28 10:28 10:28 WBC RBC 4.31 L Hgb Hct RDW 17.2 H Plt Count 102 L MPV 6.1 L Lymph % (Auto) 15.1 L Lymph # (Auto) 0.7 L Eosinophils % (Manual) Platelet Estimate RBC Morphology Anisocytosis Carbon Dioxide 20 L Anion Gap 17.0 H Creatinine 1.3 H Glucose 129 H Calcium 8.3 L Phosphorus Total Protein Albumin Triglycerides Urine Urobilinogen U Marijuana (THC) Screen Ethyl Alcohol 0.110 H Meds: Medications Acetaminophen (Tylenol) 650 mg PO Q4-6HP PRN PRN Reason: PAIN/FEVER > 101 Last Admin: 12/24/18 22:04 Dose: 650 mg Documented by: Clonidine HCl (Catapres) 0.1 mg PO Q4HP PRN PRN Reason: Alcohol Withdrawal Cyanocobalamin (Vitamin B-12) 1,000 mcg PO BID [facility] Stop: 12/28/18 09:01 Last Admin: 12/25/18 08:06 Dose: 1,000 mcg Documented by: Diazepam (Valium) 10 mg PO Q1HP PRN PRN Reason: Anxiety/Agitation Last Admin: 12/25/18 08:09 Dose: 10 mg Documented by: Docusate Sodium (Colace) 100 mg PO BID [facility] Last Admin: 12/25/18 08:07 Dose: 100 mg Documented by: Folic Acid (Folic Acid) 1 mg PO DAILY [facility] Last Admin: 12/25/18 08:09 Dose: 1 mg Documented by: Guaifenesin/Codeine Phosphate (Robitussin Ac) 10 ml PO Q4HP PRN PRN Reason: Cough Heparin Sodium (Porcine) (Heparin) 5,000 unit SQ Q12 [facility] Last Admin: 12/25/18 08:06 Dose: Not Given Documented by: Potassium Chloride 40 meq/ (Dextrose) 520 mls @ 130 mls/hr IV UD PRN PRN Reason: K+ = or < 3.5 Magnesium Sulfate (Magnesium Sulfate) 2 gm in 50 mls @ 50 mls/hr IV UD PRN PRN Reason: MG = or < 1.7 Sodium Chloride (Sodium Chloride 0.9%) 1,000 mls @ 75 mls/hr IV .[id number] [facility] Stop: 12/27/18 10:52 Last Admin: 12/25/18 06:48 Dose: 75 mls/hr Documented by: Thiamine HCl 100 mg/ Sodium (Chloride) 51 mls @ 50 mls/hr IV DAILY [facility] Stop: 12/26/18 10:02 Last Admin: 12/25/18 10:11 Dose: 50 mls/hr Documented by: Iron Carb/Multivit/Country Walk/Folic Acid (Multivitamin W/Minerals) 1 tab PO DAILY [facility] Last Admin: 12/25/18 08:08 Dose: 1 tab Documented by: Ondansetron HCl (Zofran) 4 mg IV Q4-6HP PRN PRN Reason: Nausea And Vomiting Last Admin: 12/25/18 05:39 Dose: 4 mg Documented by: Potassium Chloride (Klor-Con) 40 meq PO DAILYP PRN PRN Reason: K+ < 3.5 Senna/Docusate Sodium (Senna Plus Tablet) 1 tab PO HS [facility] Last Admin: 12/24/18 20:13 Dose: 1 tab Documented by: Sodium Chloride (Saline Flush) 10 ml IV Q8 [facility] Last Admin: 12/25/18 04:04 Dose: Not Given Documented by: Sodium Chloride (Saline Flush) 10 ml IV Q8 [facility] Last Admin: 12/25/18 04:04 Dose: Not Given Documented by: Thiamine HCl (Vitamin B1) 100 mg PO TID [facility] Stop: 12/27/18 09:01 Last Admin: 12/25/18 08:10 Dose: 100 mg Documented by: Vitamin B Complex (Vitamin B Complex) 1 cap PO BID [facility] Stop: 12/29/18 09:01 Last Admin: 12/25/18 08:07 Dose: 1 cap Documented by: Medical - PN: A/P - Time Spent With Patient Total time spent is greater than 50% in coordination of care (as documented) at patient's floor/unit and/or counseling patient: (1) Delirium tremens Status: Acute Assessment and plan: * Severe alcohol withdrawal with delirium tremens-improving with management per protocol. CIWA scores as low as 6. Persistent hallucinations. Continue nutrition support/PT OT * History of hypertension-stable on MONSE inhibitor * History of peptic ulcer disease continue PPI * Tobacco dependence-continue counseling * Full code * Prophylaxis heparin Plan * Continue alcohol withdrawal management per protocol * Nutrition support/ PT OT * Pre-existing medical condition management on home meds Current Visit: Yes (2) Alcohol withdrawal delirium Status: Acute Current Visit: Yes Medical - PN: Qual - VTE Deep Vein Thrombosis/Pulmonary Embolism Present on Admission: No
[2018-12-25] MEDS ORDERED: ONDANSETRON 4 MG ODT TABLET SL PRN (10:22)
--- NOTE | 2018-12-25 10:39 | Internal Med Progress Note ---
Medical - PN: Subj Patient information: Note initiated : 12/25/18 at 10:37 am Service Date, if different from initiated Date: [] Patient: Elliott Traylor 63 y/o M admitted on 12/23/18 for "Alcohol Withdrawal". Patient continues to be in active alcohol withdrawal. He's been experiencing auditory/visual one day ago, high CIWA's up to 29. Has received a total of 80mg Valium 12/24. Today, has received 40mg of Valium. Complains of a headache from a concussion but denies blurry vision, N&V. Denies chest pain, SOB. - Constitutional Vitals: Vital Signs Temp Pulse Resp BP Pulse Ox 97.7 F 81 20 131/86 97 12/25/18 07:26 12/25/18 07:26 12/25/18 07:26 12/25/18 07:26 12/25/18 07:26 Period Temp Pulse Resp BP Sys/Killian Pulse Ox Last 24 Hr 97.7 F-99.1 F 75-87 18-28 124-146/78-94 95-98 Intake and Output 12/24/18 12/25/18 12/25/18 21:59 05:59 13:59 Intake Total 8220 906 2228 Output Total 50 1350 600 Balance 1170 -450 510 Weight 239 lb Intake & Output: Intake & Output 12/24/18 12/25/18 12/25/18 21:59 05:59 13:59 Intake Total 9576 927 1183 Output Total 50 1350 600 Balance 1170 -450 510 Weight 239 lb Intake: IV 950 Sodium Chloride 0.9% 1,000 ml @ 950 75 mls/hr IV .[id number] [facility] Rx#: [id number] Oral 1220 900 160 Output: Void Amount 50 1350 600 Other: Meal Dinner Nourishment/Supplement Breakfast Percent of Meal Consumed 100% 100% 50% Feeding Ability Independent Independent Assist with Tray Set Up Nourishment/Supplement name Egg Salad [place], 1/2 Tuna [place] Urine Appearance Clear Clear Urine Color Dark Yellow Bright Yellow # Voids 1 1 General appearance: cooperative, mild distress - Head Head exam: Present: atraumatic, normal inspection - Expanded Head Exam Head exam: Absent: Anders's sign, contusion, general tenderness, hematoma, raccoon eyes, tenderness of temporal artery - Eye Eye exam: Present: EOMI, normal appearance, PERRL. Absent: nystagmus, scleral icterus - ENT ENT exam: Present: mucous membranes moist, normal oropharynx - Neck Neck exam: Present: full ROM - Respiratory Respiratory exam: Present: CTAB. Absent: rales, respiratory distress, rhonchi - Cardiovascular Cardiovascular exam: Present: normal rate and rhythm - GI/Abdominal GI/Abdominal exam: Present: normal bowel sounds, soft. Absent: guarding, mass, tenderness - Extremities Exam Extremities exam: Absent: calf tenderness Additional comments: mild tremor upper extremities b/l - Psychiatric Psychiatric exam: Present: anxious (Alert and oriented to date time and place) Medical - PN: Obj Da - Labs CBC & Chem 7: 12/25/18 03:49 12/25/18 03:49 Labs: Abnormal Lab Results 12/25/18 12/25/18 12/24/18 03:49 03:49 03:30 WBC 3.4 L RBC 3.77 L Hgb 12.5 L Hct 37.0 L RDW 17.5 H Plt Count 69 L MPV 6.6 L Lymph % (Auto) Lymph # (Auto) Eosinophils % (Manual) Platelet Estimate Decreased A RBC Morphology Anisocytosis 1+ A Carbon Dioxide Anion Gap Creatinine 1.3 H Glucose 129 H 138 H Calcium 8.1 L Phosphorus 2.5 L Total Protein 5.4 L 5.2 L Albumin 3.0 L 3.0 L Triglycerides 158 H 198 H Urine Urobilinogen U Marijuana (THC) Screen Ethyl Alcohol 12/24/18 12/23/18 12/23/18 03:30 11:45 11:45 WBC 3.2 L RBC 3.81 L Hgb 12.7 L Hct 37.2 L RDW 17.1 H Plt Count 83 L MPV 6.7 L Lymph % (Auto) Lymph # (Auto) Eosinophils % (Manual) 12 H Platelet Estimate Decreased A RBC Morphology Abnorm A Anisocytosis 1+ A Carbon Dioxide Anion Gap Creatinine Glucose Calcium Phosphorus Total Protein Albumin Triglycerides Urine Urobilinogen 2.0 A U Marijuana (THC) Screen Suspect positive A Ethyl Alcohol 12/23/18 12/23/18 12/23/18 10:28 10:28 10:28 WBC RBC 4.31 L Hgb Hct RDW 17.2 H Plt Count 102 L MPV 6.1 L Lymph % (Auto) 15.1 L Lymph # (Auto) 0.7 L Eosinophils % (Manual) Platelet Estimate RBC Morphology Anisocytosis Carbon Dioxide 20 L Anion Gap 17.0 H Creatinine 1.3 H Glucose 129 H Calcium 8.3 L Phosphorus Total Protein Albumin Triglycerides Urine Urobilinogen U Marijuana (THC) Screen Ethyl Alcohol 0.110 H Meds: Medications Acetaminophen (Tylenol) 650 mg PO Q4-6HP PRN PRN Reason: PAIN/FEVER > 101 Last Admin: 12/24/18 22:04 Dose: 650 mg Documented by: Buspirone HCl (Buspar) 5 mg PO BID [facility] Clonidine HCl (Catapres) 0.1 mg PO Q4HP PRN PRN Reason: Alcohol Withdrawal Cyanocobalamin (Vitamin B-12) 1,000 mcg PO BID [facility] Stop: 12/28/18 09:01 Last Admin: 12/25/18 08:06 Dose: 1,000 mcg Documented by: Diazepam (Valium) 10 mg PO Q1HP PRN PRN Reason: Anxiety/Agitation Last Admin: 12/25/18 10:26 Dose: 10 mg Documented by: Docusate Sodium (Colace) 100 mg PO BID [facility] Last Admin: 12/25/18 08:07 Dose: 100 mg Documented by: Folic Acid (Folic Acid) 1 mg PO DAILY [facility] Guaifenesin/Codeine Phosphate (Robitussin Ac) 10 ml PO Q4HP PRN PRN Reason: Cough Heparin Sodium (Porcine) (Heparin) 5,000 unit SQ Q12 [facility] Last Admin: 12/25/18 08:06 Dose: Not Given Documented by: Hydrochlorothiazide (Oretic) 12.5 mg PO DAILY [facility] Hydroxyzine HCl (Atarax) 25 mg PO TID [facility] Potassium Chloride 40 meq/ (Dextrose) 520 mls @ 130 mls/hr IV UD PRN PRN Reason: K+ = or < 3.5 Magnesium Sulfate (Magnesium Sulfate) 2 gm in 50 mls @ 50 mls/hr IV UD PRN PRN Reason: MG = or < 1.7 Sodium Chloride (Sodium Chloride 0.9%) 1,000 mls @ 75 mls/hr IV .[id number] [facility] Stop: 12/27/18 10:52 Last Admin: 12/25/18 06:48 Dose: 75 mls/hr Documented by: Thiamine HCl 100 mg/ Sodium (Chloride) 51 mls @ 50 mls/hr IV DAILY [facility] Stop: 12/26/18 10:02 Last Admin: 12/25/18 10:11 Dose: 50 mls/hr Documented by: Iron Carb/Multivit/[place]/Folic Acid (Multivitamin W/Minerals) 1 tab PO DAILY [facility] Last Admin: 12/25/18 08:08 Dose: 1 tab Documented by: Lisinopril (Zestril) 10 mg PO DAILY [facility] Omeprazole (Prilosec) 20 mg PO ACB [facility] Ondansetron HCl (Zofran) 4 mg IV Q4-6HP PRN PRN Reason: Nausea And Vomiting Last Admin: 12/25/18 05:39 Dose: 4 mg Documented by: Ondansetron HCl (Zofran Odt) 4 mg SL Q4-6HP PRN PRN Reason: Nausea Potassium Chloride (Klor-Con) 40 meq PO DAILYP PRN PRN Reason: K+ < 3.5 Senna/Docusate Sodium (Senna Plus Tablet) 1 tab PO HS [facility] Last Admin: 12/24/18 20:13 Dose: 1 tab Documented by: Sodium Chloride (Saline Flush) 10 ml IV Q8 [facility] Last Admin: 12/25/18 04:04 Dose: Not Given Documented by: Sodium Chloride (Saline Flush) 10 ml IV Q8 [facility] Last Admin: 12/25/18 04:04 Dose: Not Given Documented by: Thiamine HCl (Vitamin B1) 100 mg PO TID [facility] Stop: 12/27/18 09:01 Last Admin: 12/25/18 08:10 Dose: 100 mg Documented by: Vitamin B Complex (Vitamin B Complex) 1 cap PO BID [facility] Stop: 12/29/18 09:01 Last Admin: 12/25/18 08:07 Dose: 1 cap Documented by: Medical - PN: A/P - Time Spent With Patient Total time spent is greater than 50% in coordination of care (as documented) at patient's floor/unit and/or counseling patient: 25 - 35 minutes (1) Alcohol withdrawal syndrome Status: Acute Current Visit: No (2) Alcohol use disorder Status: Acute Current Visit: Yes - Narrative A/P Narrative: Patient in active withdrawal. Continue valium per protocol. Close monitoring Medical - PN: Qual - VTE Deep Vein Thrombosis/Pulmonary Embolism Present on Admission: No
[2018-12-25] MEDS: ACETAMINOPHEN 325 MG TABLET PO PRN ×2 (12:11→18:58)
[2018-12-25] MEDS ORDERED: hydrOXYzine 25 MG TABLET PO SCH (15:00)
[2018-12-25] MEDS ORDERED: ONDANSETRON 4 MG/2 ML VIAL IV PRN (17:52)
[2018-12-25] MEDS ORDERED: guaiFENesin/CODEINE 10 ML UDC PO PRN (17:52)
[2018-12-25] MEDS ORDERED: POTASSIUM CHLORIDE 20 MEQ PACKET PO PRN (17:52)
[2018-12-25] MEDS ORDERED: MAGNESIUM SULFATE 2 GM/50 ML BAG IV PRN (17:52)
[2018-12-25] MEDS ORDERED: cloNIDine HCL 0.1 MG TABLET PO PRN (17:52)
[2018-12-25] MEDS ORDERED: POTASSIUM CHLORIDE 40 MEQ in DEXTROSE 5% IN WATER 500 ML IV PRN (17:52)
[2018-12-25] MEDS: ONDANSETRON 4 MG ODT TABLET SL PRN (18:59)
[2018-12-25] MEDS ORDERED: SENNOSIDES/DOCUSATE SODIUM 1 TAB TABLET PO SCH (21:00)
[2018-12-25] MEDS ORDERED: busPIRone 5 MG TABLET PO SCH (21:00)
[2018-12-25] MEDS: busPIRone 5 MG TABLET PO SCH (21:28)
[2018-12-25] MEDS: hydrOXYzine 25 MG TABLET PO SCH (21:28)
[2018-12-26] MEDS: ACETAMINOPHEN 325 MG TABLET PO PRN ×3 (00:46→14:39)
[2018-12-26] MEDS: DIAZEPAM 10 MG TABLET PO PRN (03:37)
[2018-12-26] MEDS: 0.9 % SODIUM CHLORIDE 10 ML SYRINGE IV SCH ×5 (05:15→21:40)
[2018-12-26 05:39] LABS: Hematocrit 35.9 % (41.0-55.0); Hemoglobin 12.1 g/dL (13.5-16.5); Mean Cell Volume 98.6 fL (80.0-100.0); Mean Corpuscular HGB Conc 33.8 g/dL (31.0-36.0); Mean Platelet Volume 6.6 fL (7.4-10.4); Platelet Count 73 K/mcL (140-440); RBC 3.64 M/mcL (4.50-5.90); Red Cell Distribution Width 17.8 % (11.5-14.5); WBC 4.5 K/mcL (4.5-11.0)
[2018-12-26 06:19] LABS: ALT/SGPT 9 U/l (0-40); AST/SGOT 12 U/l (0-37); Albumin 3.1 gm/dL (3.2-5.2); Albumin/Globulin Ratio 1.3 (1.0-2.3); Alkaline Phosphatase 74 U/L (39-117); Bilirubin,Direct < 0.2 mg/dL (0.0-0.3); Bilirubin,Total 0.2 mg/dL (0.0-1.0); Blood Urea Nitrogen 13 mg/dl (8-23); Calcium 8.9 mg/dl (8.6-10.4); Carbon Dioxide 26 mmol/L (22-30); Chloride 104 mmol/L (96-108); Globulin 2.3 gm/dL (2.2-3.7); Glomerular Filtration Rate 58; Glucose 108 mg/dL (70-105); Lactate Dehydrogenase 179 U/L (94-250); Phosphorous 3.8 mg/dL (2.7-4.5); Triglycerides 107 mg/dl (<150); Uric Acid 3.9 mg/dL (2.5-8.0)
[2018-12-26 06:44] LABS: Anisocytosis 1+ (NONE SEEN); Band Neutrophils % 2 % (0-10); Eosinophils % (Manual) 2 % (0-7); Lymphocytes % 24 % (15-49); Monocytes % (Manual) 6 % (1-12); Nucleated Red Blood Cells 1 % (0-0); Platelet Estimate DECREASED (NORMAL); RBC Morphology ABNORM (NORMAL); Segmented Neutrophils % 66 % (38-78)
[2018-12-26] MEDS ORDERED: OMEPRAZOLE 20 MG CAPSULE PO SCH ×2 (07:30)
[2018-12-26] MEDS ORDERED: FOLIC ACID 1 MG TABLET PO SCH ×2 (09:00)
[2018-12-26] MEDS ORDERED: LISINOPRIL 10 MG TABLET PO SCH ×2 (09:00)
[2018-12-26] MEDS ORDERED: FONDAPARINUX SODIUM 2.5 MG/0.5 ML SYRINGE SQ SCH (09:00)
[2018-12-26] MEDS ORDERED: HYDROCHLOROTHIAZIDE 12.5 MG CAPSULE PO SCH ×2 (09:00)
[2018-12-26] MEDS ORDERED: THIAMINE 100 MG in 0.9 % SODIUM CHLORIDE 50 ML IV SCH (09:00)
[2018-12-26] MEDS ORDERED: LISINOPRIL/HCTZ 10/12.5MG TABLET PO SCH (09:00)
[2018-12-26] MEDS ORDERED: MULTIVIT,THER IRON,CA,FA & MIN 1 TABLET PO SCH (09:00)
[2018-12-26] MEDS: HEPARIN 5,000 UNIT/ML VIAL SQ SCH ×2 (09:53→10:06)
[2018-12-26] MEDS: THIAMINE 100 MG TABLET PO SCH ×4 (09:54→21:40)
[2018-12-26] MEDS: DOCUSATE SODIUM 100 MG CAPSULE PO SCH ×2 (09:54→21:39)
[2018-12-26] MEDS: CYANOCOBALAMIN (VITAMIN B-12) 500 MCG TABLET PO SCH ×2 (09:54→21:40)
[2018-12-26] MEDS: hydrOXYzine 25 MG TABLET PO SCH ×3 (09:55→21:39)
[2018-12-26] MEDS: busPIRone 5 MG TABLET PO SCH ×2 (09:55→21:39)
[2018-12-26] MEDS: VITAMIN B COMPLEX 1 CAPSULE PO SCH ×2 (09:55→21:39)
--- NOTE | 2018-12-26 10:09 | Internal Med Progress Note ---
Medical - PN: Subj Patient information: Note initiated : 12/26/18 at 10:05 am Patient: Elliott Traylor 63 y/o M admitted on 12/23/18 for "Alcohol Withdrawal". Patient has been transferred to ICU last night, increase in CIWA's and patient has been receiving over 80mg valium. Today, CIWA's decreased to 10. He is sitting up in bed and eating breakfast. Experiencing mild tremor, nausea but no vomiting. Denies auditory/visual/tactile hallucinations. Complains of headache, unable to localize pain. Patient was evaluated for a concussion at [facility] ER on 12/22/18, CT head unremarkable; records reviewed. Denies chest pain, SOB, abdominal pain. Patient received 10mg Valium today. - Constitutional Vitals: Vital Signs Temp Pulse Resp BP Pulse Ox 97.6 F 78 22 145/95 99 12/26/18 08:02 12/26/18 02:00 12/26/18 08:02 12/26/18 08:02 12/26/18 08:02 Period Temp Pulse Resp BP Sys/Killian Pulse Ox Last 24 Hr 97.6 F-99.2 F 70-80 16-27 105-151/69-107 96-100 Intake and Output 12/25/18 12/26/18 12/26/18 21:59 05:59 13:59 Intake Total 600 980 Output Total 200 1050 Balance 400 -70 Weight 240 lb 9.6 oz Intake & Output: Intake & Output 12/25/18 12/26/18 12/26/18 21:59 05:59 13:59 Intake Total 600 980 Output Total 200 1050 Balance 400 -70 Weight 240 lb 9.6 oz Intake: Oral 600 980 Output: Void Amount 200 1050 Other: Meal Dinner Percent of Meal Consumed 100% Feeding Ability Independent Urine Appearance Clear Clear Urine Color Pale Pale Light Trina Urine Odor Normal Stool Size Moderate Stool Color Brown Stool Consistency Dry and Hard # Bowel Movements 1 General appearance: no acute distress - Head Head exam: Present: atraumatic - Eye Eye exam: Present: EOMI, PERRL. Absent: nystagmus Pupils: Present: PERRL - ENT ENT exam: Present: mucous membranes moist, normal oropharynx - Respiratory Respiratory exam: Present: normal respiratory exam, CTAB - Cardiovascular Cardiovascular exam: Present: normal rate and rhythm, RRR. Absent: systolic murmur - GI/Abdominal GI/Abdominal exam: Present: normal bowel sounds, soft. Absent: mass, tenderness - Neurological Exam Neurological exam: Present: alert, CN II-XII intact, motor sensory deficit, oriented X3 - Psychiatric Psychiatric exam: Present: normal affect, normal mood. Absent: suicidal ideation Medical - PN: Obj Da - Labs CBC & Chem 7: 12/26/18 03:35 12/26/18 03:35 Labs: Abnormal Lab Results 12/26/18 12/26/18 12/25/18 03:35 03:35 03:49 WBC RBC 3.64 L Hgb 12.1 L Hct 35.9 L RDW 17.8 H Plt Count 73 L MPV 6.6 L Lymph % (Auto) Lymph # (Auto) Eosinophils % (Manual) Nucleated RBCs 1 H Platelet Estimate Decreased A RBC Morphology Abnorm A Anisocytosis 1+ A Carbon Dioxide Anion Gap Creatinine 1.3 H 1.3 H Glucose 108 H 129 H Calcium Phosphorus Total Protein 5.4 L 5.4 L Albumin 3.1 L 3.0 L Triglycerides 158 H Urine Urobilinogen U Marijuana (THC) Screen Ethyl Alcohol 12/25/18 12/24/18 12/24/18 03:49 03:30 03:30 WBC 3.4 L 3.2 L RBC 3.77 L 3.81 L Hgb 12.5 L 12.7 L Hct 37.0 L 37.2 L RDW 17.5 H 17.1 H Plt Count 69 L 83 L MPV 6.6 L 6.7 L Lymph % (Auto) Lymph # (Auto) Eosinophils % (Manual) 12 H Nucleated RBCs Platelet Estimate Decreased A Decreased A RBC Morphology Abnorm A Anisocytosis 1+ A 1+ A Carbon Dioxide Anion Gap Creatinine Glucose 138 H Calcium 8.1 L Phosphorus 2.5 L Total Protein 5.2 L Albumin 3.0 L Triglycerides 198 H Urine Urobilinogen U Marijuana (THC) Screen Ethyl Alcohol 12/23/18 12/23/18 12/23/18 11:45 11:45 10:28 WBC RBC Hgb Hct RDW Plt Count MPV Lymph % (Auto) Lymph # (Auto) Eosinophils % (Manual) Nucleated RBCs Platelet Estimate RBC Morphology Anisocytosis Carbon Dioxide Anion Gap Creatinine Glucose Calcium Phosphorus Total Protein Albumin Triglycerides Urine Urobilinogen 2.0 A U Marijuana (THC) Screen Suspect positive A Ethyl Alcohol 0.110 H 12/23/18 12/23/18 10:28 10:28 WBC RBC 4.31 L Hgb Hct RDW 17.2 H Plt Count 102 L MPV 6.1 L Lymph % (Auto) 15.1 L Lymph # (Auto) 0.7 L Eosinophils % (Manual) Nucleated RBCs Platelet Estimate RBC Morphology Anisocytosis Carbon Dioxide 20 L Anion Gap 17.0 H Creatinine 1.3 H Glucose 129 H Calcium 8.3 L Phosphorus Total Protein Albumin Triglycerides Urine Urobilinogen U Marijuana (THC) Screen Ethyl Alcohol Meds: Medications Acetaminophen (Tylenol) 650 mg PO Q4-6HP PRN PRN Reason: PAIN/FEVER > 101 Last Admin: 12/26/18 09:01 Dose: 650 mg Documented by: Buspirone HCl (Buspar) 5 mg PO BID [facility] Last Admin: 12/26/18 09:55 Dose: 5 mg Documented by: Clonidine HCl (Catapres) 0.1 mg PO Q4HP PRN PRN Reason: Alcohol Withdrawal Cyanocobalamin (Vitamin B-12) 1,000 mcg PO BID [facility] Stop: 12/28/18 09:01 Last Admin: 12/26/18 09:54 Dose: 1,000 mcg Documented by: Diazepam (Valium) 10 mg PO Q1HP PRN PRN Reason: Anxiety/Agitation Last Admin: 12/26/18 03:37 Dose: 10 mg Documented by: Docusate Sodium (Colace) 100 mg PO BID [facility] Last Admin: 12/26/18 09:54 Dose: 100 mg Documented by: Folic Acid (Folic Acid) 1 mg PO DAILY [facility] Last Admin: 12/26/18 09:54 Dose: 1 mg Documented by: Gabapentin (Neurontin) 300 mg PO TID [facility] Guaifenesin/Codeine Phosphate (Robitussin Ac) 10 ml PO Q4HP PRN PRN Reason: Cough Heparin Sodium (Porcine) (Heparin) 5,000 unit SQ Q12 [facility] Last Admin: 12/25/18 21:29 Dose: 5,000 unit Documented by: Hydrochlorothiazide (Oretic) 12.5 mg PO DAILY [facility] Last Admin: 12/26/18 09:54 Dose: 12.5 mg Documented by: Hydroxyzine HCl (Atarax) 25 mg PO TID [facility] Last Admin: 12/26/18 09:55 Dose: 25 mg Documented by: Potassium Chloride 40 meq/ (Dextrose) 520 mls @ 130 mls/hr IV UD PRN PRN Reason: K+ = or < 3.5 Magnesium Sulfate (Magnesium Sulfate) 2 gm in 50 mls @ 50 mls/hr IV UD PRN PRN Reason: MG = or < 1.7 Sodium Chloride (Sodium Chloride 0.9%) 1,000 mls @ 75 mls/hr IV .[id number] [facility] Stop: 12/27/18 10:52 Last Admin: 12/25/18 21:27 Dose: 75 mls/hr Documented by: Iron Carb/Multivit/[employer]/Folic Acid (Multivitamin W/Minerals) 1 tab PO DAILY [facility] Last Admin: 12/26/18 09:54 Dose: 1 tab Documented by: Lisinopril (Zestril) 10 mg PO DAILY [facility] Last Admin: 12/26/18 09:54 Dose: 10 mg Documented by: Mirtazapine (Remeron) 15 mg PO [facility] Omeprazole (Prilosec) 20 mg PO ACB [facility] Last Admin: 12/26/18 09:01 Dose: 20 mg Documented by: Ondansetron HCl (Zofran) 4 mg IV Q4-6HP PRN PRN Reason: Nausea And Vomiting Last Admin: 12/26/18 09:00 Dose: 4 mg Documented by: Ondansetron HCl (Zofran Odt) 4 mg SL Q4-6HP PRN PRN Reason: Nausea Last Admin: 12/25/18 18:59 Dose: 4 mg Documented by: Potassium Chloride (Klor-Con) 40 meq PO DAILYP PRN PRN Reason: K+ < 3.5 Senna/Docusate Sodium (Senna Plus Tablet) 1 tab PO HS [facility] Last Admin: 12/25/18 21:29 Dose: 1 tab Documented by: Sodium Chloride (Saline Flush) 10 ml IV Q8 [facility] Last Admin: 12/26/18 05:15 Dose: Not Given Documented by: Sodium Chloride (Saline Flush) 10 ml IV Q8 [facility] Last Admin: 12/26/18 05:15 Dose: Not Given Documented by: Thiamine HCl (Vitamin B1) 100 mg PO TID [facility] Stop: 12/27/18 09:01 Last Admin: 12/26/18 10:05 Dose: Not Given Documented by: Vitamin B Complex (Vitamin B Complex) 1 cap PO BID [facility] Stop: 12/29/18 09:01 Last Admin: 12/26/18 09:55 Dose: 1 cap Documented by: Medical - PN: A/P - Time Spent With Patient Total time spent is greater than 50% in coordination of care (as documented) at patient's floor/unit and/or counseling patient: 25 - 35 minutes (1) Alcohol withdrawal syndrome Status: Acute Current Visit: No (2) Alcohol use disorder Status: Acute Current Visit: Yes (3) Concussion Status: Acute Current Visit: Yes - Narrative A/P Narrative: Patient's CIWA scores improving. Continue Valium protocol prn CIWA scores. Start Gabapentin 300mg TID Start Remeron 15mg qhs sleep close daily follow up Medical - PN: Qual - VTE Deep Vein Thrombosis/Pulmonary Embolism Present on Admission: No
[2018-12-26] MEDS: 0.9 % SODIUM CHLORIDE 1,000 ML IV SCH ×3 (11:20→22:29)
--- NOTE | 2018-12-26 11:51 | Internal Med Progress Note ---
Medical - PN: Subj Patient information: Note initiated : 12/26/18 at 11:48 am Service Date, if different from initiated Date: [] Patient: Elliott Traylor 63 y/o M admitted on 12/23/18 for "Alcohol Withdrawal". Chief Complaint: [] Interval history: Mr. Traylor is a 63 year old M with a history of long-standing alcohol dependence who presents to the ER for voluntary assistance with alcohol withdrawal. Patient has been drinking 1/5 of spiced rum every day. He however has become extremely distressed about his symptoms of withdrawal including tremors shaking nausea. He had a fall recently sustained a head injury which was evaluated in ER. He was at [facility] the day prior to presentation to help with withdrawal symptoms and was discharged on oral Ativan/antiemetics. He however was unable to cope with continued hallucinations/tremors/irritability and endorses to multiple episodes of seizures last night. He appears highly motivated to quit drinking and endorses that he has successfully done so in the recent past from May until September until he relapsed again. He denies family support, he lives alone. Initial work-up in the ER was essentially unremarkable. Patient was started on CIWA protocol with initial score 18. 12/24-patient doing remarkably well on alcohol withdrawal protocol. Stable h emodynamics with improved psychomotor agitation/tremors/hallucinations. Continuing multivitamins/crystalloids and nutrition support. Continue PT OT. Transition to medical floor today. No overnight telemetry events. 12/25-patient is doing a lot better. Alert to self. No significant psychomotor agitation or anxiety. Frequent hallucinations. CIWA scores between 6 and 29. Tolerating diet. Stable labs and hemodynamics. Anticipate discharge once clinically improved in the next 48 hours 12/26-patient doing well. No overnight events. CIWA scores improving. Managed as per detox specialist. Stable labs hemodynamics and vitals. Continue close monitoring. Nutrition support/counseling and rehab - Constitutional Vitals: Vital Signs Temp Pulse Resp BP Pulse Ox 97.6 F 78 22 145/95 99 12/26/18 08:02 12/26/18 02:00 12/26/18 08:02 12/26/18 08:02 12/26/18 08:02 Period Temp Pulse Resp BP Sys/Killian Pulse Ox Last 24 Hr 97.6 F-99.2 F 70-80 105-151/69-107 96-100 Intake and Output 12/25/18 12/26/18 12/26/18 21:59 05:59 13:59 Intake Total 594 662 1063 Output Total 200 1050 Balance 400 -70 1000 Weight 240 lb 9.6 oz Intake & Output: Intake & Output 12/25/18 12/26/18 12/26/18 21:59 05:59 13:59 Intake Total 045 102 0578 Output Total 200 1050 Balance 400 -70 1000 Weight 240 lb 9.6 oz Intake: IV 1000 Sodium Chloride 0.9% 1,000 ml @ 1000 75 mls/hr IV .[id number] [facility] Rx#: [id number] Oral 600 980 Output: Void Amount 200 1050 Other: Meal Dinner Percent of Meal Consumed 100% Feeding Ability Independent Urine Appearance Clear Clear Urine Color Pale Pale Light Trina Urine Odor Normal Stool Size Moderate Stool Color Brown Stool Consistency Dry and Hard # Bowel Movements 1 General appearance: no acute distress Exam: Alert oriented nonlabored breathing no anxiety No lymphedema Nondistended abdomen Medical - PN: Obj Da - Labs CBC & Chem 7: 12/26/18 03:35 12/26/18 03:35 Labs: Abnormal Lab Results 12/26/18 12/26/18 12/25/18 03:35 03:35 03:49 WBC RBC 3.64 L Hgb 12.1 L Hct 35.9 L RDW 17.8 H Plt Count 73 L MPV 6.6 L Eosinophils % (Manual) Nucleated RBCs 1 H Platelet Estimate Decreased A RBC Morphology Abnorm A Anisocytosis 1+ A Creatinine 1.3 H 1.3 H Glucose 108 H 129 H Calcium Phosphorus Total Protein 5.4 L 5.4 L Albumin 3.1 L 3.0 L Triglycerides 158 H Urine Urobilinogen U Marijuana (THC) Screen 12/25/18 12/24/18 12/24/18 03:49 03:30 03:30 WBC 3.4 L 3.2 L RBC 3.77 L 3.81 L Hgb 12.5 L 12.7 L Hct 37.0 L 37.2 L RDW 17.5 H 17.1 H Plt Count 69 L 83 L MPV 6.6 L 6.7 L Eosinophils % (Manual) 12 H Nucleated RBCs Platelet Estimate Decreased A Decreased A RBC Morphology Abnorm A Anisocytosis 1+ A 1+ A Creatinine Glucose 138 H Calcium 8.1 L Phosphorus 2.5 L Total Protein 5.2 L Albumin 3.0 L Triglycerides 198 H Urine Urobilinogen U Marijuana (THC) Screen 12/23/18 12/23/18 11:45 11:45 WBC RBC Hgb Hct RDW Plt Count MPV Eosinophils % (Manual) Nucleated RBCs Platelet Estimate RBC Morphology Anisocytosis Creatinine Glucose Calcium Phosphorus Total Protein Albumin Triglycerides Urine Urobilinogen 2.0 A U Marijuana (THC) Screen Suspect positive A Meds: Medications Acetaminophen (Tylenol) 650 mg PO Q4-6HP PRN PRN Reason: PAIN/FEVER > 101 Last Admin: 12/26/18 09:01 Dose: 650 mg Documented by: Buspirone HCl (Buspar) 5 mg PO BID [facility] Last Admin: 12/26/18 09:55 Dose: 5 mg Documented by: Clonidine HCl (Catapres) 0.1 mg PO Q4HP PRN PRN Reason: Alcohol Withdrawal Cyanocobalamin (Vitamin B-12) 1,000 mcg PO BID [facility] Stop: 12/28/18 09:01 Last Admin: 12/26/18 09:54 Dose: 1,000 mcg Documented by: Diazepam (Valium) 10 mg PO Q1HP PRN PRN Reason: Anxiety/Agitation Last Admin: 12/26/18 03:37 Dose: 10 mg Documented by: Docusate Sodium (Colace) 100 mg PO BID [facility] Last Admin: 12/26/18 09:54 Dose: 100 mg Documented by: Folic Acid (Folic Acid) 1 mg PO DAILY [facility] Last Admin: 12/26/18 09:54 Dose: 1 mg Documented by: Fondaparinux (Arixtra) 2.5 mg SQ DAILY [facility] Last Admin: 12/26/18 11:23 Dose: 2.5 mg Documented by: Gabapentin (Neurontin) 300 mg PO TID [facility] Guaifenesin/Codeine Phosphate (Robitussin Ac) 10 ml PO Q4HP PRN PRN Reason: Cough Hydrochlorothiazide (Oretic) 12.5 mg PO DAILY [facility] Last Admin: 12/26/18 09:54 Dose: 12.5 mg Documented by: Hydroxyzine HCl (Atarax) 25 mg PO TID [facility] Last Admin: 12/26/18 09:55 Dose: 25 mg Documented by: Potassium Chloride 40 meq/ (Dextrose) 520 mls @ 130 mls/hr IV UD PRN PRN Reason: K+ = or < 3.5 Magnesium Sulfate (Magnesium Sulfate) 2 gm in 50 mls @ 50 mls/hr IV UD PRN PRN Reason: MG = or < 1.7 Sodium Chloride (Sodium Chloride 0.9%) 1,000 mls @ 75 mls/hr IV .[id number] [facility] Stop: 12/27/18 10:52 Last Admin: 12/26/18 11:20 Dose: 75 mls/hr Documented by: Iron Carb/Multivit/[place]/Folic Acid (Multivitamin W/Minerals) 1 tab PO DAILY [facility] Last Admin: 12/26/18 09:54 Dose: 1 tab Documented by: Lisinopril (Zestril) 10 mg PO DAILY [facility] Last Admin: 12/26/18 09:54 Dose: 10 mg Documented by: Mirtazapine (Remeron) 15 mg PO [facility] Omeprazole (Prilosec) 20 mg PO ACB [facility] Last Admin: 12/26/18 09:01 Dose: 20 mg Documented by: Ondansetron HCl (Zofran) 4 mg IV Q4-6HP PRN PRN Reason: Nausea And Vomiting Last Admin: 12/26/18 09:00 Dose: 4 mg Documented by: Ondansetron HCl (Zofran Odt) 4 mg SL Q4-6HP PRN PRN Reason: Nausea Last Admin: 12/25/18 18:59 Dose: 4 mg Documented by: Potassium Chloride (Klor-Con) 40 meq PO DAILYP PRN PRN Reason: K+ < 3.5 Senna/Docusate Sodium (Senna Plus Tablet) 1 tab PO HS [facility] Last Admin: 12/25/18 21:29 Dose: 1 tab Documented by: Sodium Chloride (Saline Flush) 10 ml IV Q8 [facility] Last Admin: 12/26/18 05:15 Dose: Not Given Documented by: Sodium Chloride (Saline Flush) 10 ml IV Q8 [facility] Last Admin: 12/26/18 05:15 Dose: Not Given Documented by: Thiamine HCl (Vitamin B1) 100 mg PO TID [facility] Stop: 12/27/18 09:01 Last Admin: 12/26/18 10:05 Dose: Not Given Documented by: Vitamin B Complex (Vitamin B Complex) 1 cap PO BID [facility] Stop: 12/29/18 09:01 Last Admin: 12/26/18 09:55 Dose: 1 cap Documented by: Medical - PN: A/P - Time Spent With Patient Total time spent is greater than 50% in coordination of care (as documented) at patient's floor/unit and/or counseling patient: (1) Delirium tremens Status: Acute Assessment and plan: * Severe alcohol withdrawal with delirium tremens-improving with management per protocol. Improved hallucinations. Continue nutrition support/PT OT * History of hypertension-stable on MONSE inhibitor/thiazide * History of peptic ulcer disease continue PPI * Tobacco dependence-continue counseling * Anxiety disorder continue mirtazapine * Full code * Prophylaxis switched to fondaparinux in light of low platelets Plan * Switched to fondaparinux * Continue alcohol withdrawal management per protocol * Nutrition support/ PT OT * Pre-existing medical condition management on home meds Current Visit: Yes (2) Alcohol withdrawal delirium Status: Acute Current Visit: Yes Medical - PN: Qual - VTE Deep Vein Thrombosis/Pulmonary Embolism Present on Admission: No
[2018-12-26] MEDS: ONDANSETRON 4 MG ODT TABLET SL PRN (14:39)
[2018-12-26] MEDS ORDERED: GABAPENTIN 300 MG CAPSULE PO SCH ×2 (15:00→18:00)
[2018-12-26] MEDS ORDERED: POTASSIUM CHLORIDE 40 MEQ in DEXTROSE 5% IN WATER 500 ML IV PRN (18:58)
[2018-12-26] MEDS ORDERED: ONDANSETRON 4 MG ODT TABLET SL PRN (18:58)
[2018-12-26] MEDS ORDERED: guaiFENesin/CODEINE 10 ML UDC PO PRN (18:58)
[2018-12-26] MEDS ORDERED: cloNIDine HCL 0.1 MG TABLET PO PRN (18:58)
[2018-12-26] MEDS ORDERED: POTASSIUM CHLORIDE 20 MEQ PACKET PO PRN (18:58)
[2018-12-26] MEDS ORDERED: ONDANSETRON 4 MG/2 ML VIAL IV PRN (18:58)
[2018-12-26] MEDS ORDERED: MIRTAZAPINE 15 MG TABLET PO SCH (21:00)
[2018-12-26] MEDS: MIRTAZAPINE 15 MG TABLET PO SCH (21:39)
[2018-12-26] MEDS: SENNOSIDES/DOCUSATE SODIUM 1 TAB TABLET PO SCH (21:40)
[2018-12-26] MEDS ORDERED: 0.9 % SODIUM CHLORIDE 10 ML SYRINGE IV SCH (22:00)
[2018-12-27] MEDS: GABAPENTIN 300 MG CAPSULE PO SCH ×4 (00:08→17:24)
[2018-12-27] MEDS: 0.9 % SODIUM CHLORIDE 1,000 ML IV SCH ×2 (03:50→08:23)
[2018-12-27] MEDS: 0.9 % SODIUM CHLORIDE 10 ML SYRINGE IV SCH ×3 (05:45→21:15)
[2018-12-27 05:50] LABS: ALT/SGPT 11 U/l (0-40); AST/SGOT 14 U/l (0-37); Albumin 3.4 gm/dL (3.2-5.2); Albumin/Globulin Ratio 1.2 (1.0-2.3); Alkaline Phosphatase 75 U/L (39-117); Bilirubin,Direct < 0.2 mg/dL (0.0-0.3); Bilirubin,Total 0.3 mg/dL (0.0-1.0); Blood Urea Nitrogen 12 mg/dl (8-23); Calcium 9.6 mg/dl (8.6-10.4); Carbon Dioxide 25 mmol/L (22-30); Chloride 104 mmol/L (96-108); Globulin 2.8 gm/dL (2.2-3.7); Glomerular Filtration Rate 53; Glucose 94 mg/dL (70-105); Lactate Dehydrogenase 170 U/L (94-250); Phosphorous 4.3 mg/dL (2.7-4.5); Triglycerides 126 mg/dl (<150); Uric Acid 4.2 mg/dL (2.5-8.0)
[2018-12-27 06:11] LABS: Hematocrit 39.3 % (41.0-55.0); Hemoglobin 13.1 g/dL (13.5-16.5); Mean Cell Volume 98.8 fL (80.0-100.0); Mean Corpuscular HGB Conc 33.2 g/dL (31.0-36.0); Mean Platelet Volume 6.5 fL (7.4-10.4); Platelet Count 93 K/mcL (140-440); RBC 3.98 M/mcL (4.50-5.90); Red Cell Distribution Width 18.4 % (11.5-14.5); WBC 4.7 K/mcL (4.5-11.0)
[2018-12-27] MEDS: OMEPRAZOLE 20 MG CAPSULE PO SCH (06:42)
[2018-12-27 06:43] LABS: Anisocytosis 1+ (NONE SEEN); Basophils % (Manual) 1 % (0-2); Eosinophils % (Manual) 6 % (0-7); Lymphocytes % 24 % (15-49); Monocytes % (Manual) 7 % (1-12); Platelet Estimate DECREASED (NORMAL); RBC Morphology ABNORM (NORMAL); Segmented Neutrophils % 63 % (38-78)
[2018-12-27] MEDS: FONDAPARINUX SODIUM 2.5 MG/0.5 ML SYRINGE SQ SCH (08:19)
[2018-12-27] MEDS: busPIRone 5 MG TABLET PO SCH ×2 (08:20→21:12)
[2018-12-27] MEDS: THIAMINE 100 MG TABLET PO SCH (08:20)
[2018-12-27] MEDS: FOLIC ACID 1 MG TABLET PO SCH (08:20)
[2018-12-27] MEDS: HYDROCHLOROTHIAZIDE 12.5 MG CAPSULE PO SCH (08:20)
[2018-12-27] MEDS: hydrOXYzine 25 MG TABLET PO SCH ×3 (08:20→21:15)
[2018-12-27] MEDS: MULTIVIT,THER IRON,CA,FA & MIN 1 TABLET PO SCH (08:20)
[2018-12-27] MEDS: LISINOPRIL 10 MG TABLET PO SCH (08:20)
[2018-12-27] MEDS: VITAMIN B COMPLEX 1 CAPSULE PO SCH ×2 (08:20→21:12)
[2018-12-27] MEDS: CYANOCOBALAMIN (VITAMIN B-12) 500 MCG TABLET PO SCH ×2 (08:20→21:12)
[2018-12-27] MEDS: DOCUSATE SODIUM 100 MG CAPSULE PO SCH ×2 (08:21→21:13)
[2018-12-27] MEDS: ACETAMINOPHEN 325 MG TABLET PO PRN (08:22)
[2018-12-27] MEDS: MAGNESIUM SULFATE 2 GM/50 ML BAG IV PRN (10:21)
--- NOTE | 2018-12-27 10:28 | Internal Med Progress Note ---
Medical - PN: Subj Patient information: Note initiated : 12/27/18 at 10:24 am Patient: Elliott Traylor 63 y/o M admitted on 12/23/18 for "Alcohol Withdrawal". Patient has been w/o Valium for over 24 hours, CIWA scores minimal. At bedside this morning CIWA is 2. Denies cravings. Headache resolved. Patient is feeling somewhat weak and is working with PT. He denies N&V, appetite good. No difficulty taking in fluids and solids. Mild tremor UE improving. Denies chest pain, SOB. No difficulty sleeping. Denies depression, anxiety. - Constitutional Vitals: Vital Signs Temp Pulse Resp BP Pulse Ox 98.2 F 72 18 136/88 100 12/27/18 08:24 12/27/18 08:24 12/27/18 08:24 12/27/18 08:24 12/27/18 08:24 Period Temp Pulse Resp BP Sys/Killian Pulse Ox Last 24 Hr 97.0 F-98.2 F 71-78 15-21 110-143/68-93 96-100 Intake and Output 12/26/18 12/27/18 12/27/18 21:59 05:59 13:59 Intake Total 1407 2413 900 Output Total 2176 1225 850 Balance -769 1188 50 Weight 239 lb 12.8 oz Intake & Output: Intake & Output 12/26/18 12/27/18 12/27/18 21:59 05:59 13:59 Intake Total 1407 2413 900 Output Total 2176 1225 850 Balance -769 1188 50 Weight 239 lb 12.8 oz Intake: IV 287 1813 Sodium Chloride 0.9% 1,000 ml @ 287 1813 75 mls/hr IV .[id number] [facility] Rx#: [id number] Oral 1120 600 900 Output: Void Amount 2175 1225 850 # of times incontinent of urine 1 Other: Meal Dinner Breakfast Percent of Meal Consumed 100% 100% Feeding Ability Independent Independent Urine Appearance Clear Clear Urine Color Bright Yellow Bright Yellow General appearance: cooperative, no acute distress - Head Head exam: Present: atraumatic, normocephalic - Eye Eye exam: Present: EOMI. Absent: nystagmus Pupils: Present: PERRL - ENT ENT exam: Present: mucous membranes moist, normal oropharynx - Respiratory Respiratory exam: Present: CTAB. Absent: rales, rhonchi, wheezes - Cardiovascular Cardiovascular exam: Present: normal rate and rhythm, RRR. Absent: JVD - GI/Abdominal GI/Abdominal exam: Present: normal bowel sounds, soft. Absent: mass - Neurological Exam Neurological exam: Present: CN II-XII intact - Psychiatric Psychiatric exam: Present: normal affect, normal mood. Absent: suicidal ideation Medical - PN: Obj Da - Labs CBC & Chem 7: 12/27/18 03:54 12/27/18 03:54 Labs: Abnormal Lab Results 12/27/18 12/27/18 12/26/18 03:54 03:54 03:35 WBC RBC 3.98 L Hgb 13.1 L Hct 39.3 L RDW 18.4 H Plt Count 93 L MPV 6.5 L Nucleated RBCs Platelet Estimate Decreased A RBC Morphology Abnorm A Anisocytosis 1+ A Creatinine 1.4 H 1.3 H Glucose 108 H Total Protein 5.4 L Albumin 3.1 L Triglycerides 12/26/18 12/25/18 12/25/18 03:35 03:49 03:49 WBC 3.4 L RBC 3.64 L 3.77 L Hgb 12.1 L 12.5 L Hct 35.9 L 37.0 L RDW 17.8 H 17.5 H Plt Count 73 L 69 L MPV 6.6 L 6.6 L Nucleated RBCs 1 H Platelet Estimate Decreased A Decreased A RBC Morphology Abnorm A Anisocytosis 1+ A 1+ A Creatinine 1.3 H Glucose 129 H Total Protein 5.4 L Albumin 3.0 L Triglycerides 158 H Meds: Medications Acetaminophen (Tylenol) 650 mg PO Q4-6HP PRN PRN Reason: PAIN/FEVER > 101 Last Admin: 12/27/18 08:22 Dose: 650 mg Documented by: Buspirone HCl (Buspar) 5 mg PO BID [facility] Last Admin: 12/27/18 08:20 Dose: 5 mg Documented by: Clonidine HCl (Catapres) 0.1 mg PO Q4HP PRN PRN Reason: Alcohol Withdrawal Cyanocobalamin (Vitamin B-12) 1,000 mcg PO BID [facility] Stop: 12/28/18 09:01 Last Admin: 12/27/18 08:20 Dose: 1,000 mcg Documented by: Docusate Sodium (Colace) 100 mg PO BID [facility] Last Admin: 12/27/18 08:21 Dose: Not Given Documented by: Folic Acid (Folic Acid) 1 mg PO DAILY [facility] Last Admin: 12/27/18 08:20 Dose: 1 mg Documented by: Fondaparinux (Arixtra) 2.5 mg SQ DAILY [facility] Last Admin: 12/27/18 08:19 Dose: 2.5 mg Documented by: Gabapentin (Neurontin) 300 mg PO Q6 [facility] Last Admin: 12/27/18 06:16 Dose: 300 mg Documented by: Guaifenesin/Codeine Phosphate (Robitussin Ac) 10 ml PO Q4HP PRN PRN Reason: Cough Hydrochlorothiazide (Oretic) 12.5 mg PO DAILY [facility] Last Admin: 12/27/18 08:20 Dose: 12.5 mg Documented by: Hydroxyzine HCl (Atarax) 25 mg PO TID [facility] Last Admin: 12/27/18 08:20 Dose: 25 mg Documented by: Potassium Chloride 40 meq/ (Dextrose) 520 mls @ 130 mls/hr IV UD PRN PRN Reason: K+ = or < 3.5 Magnesium Sulfate (Magnesium Sulfate) 2 gm in 50 mls @ 50 mls/hr IV UD PRN PRN Reason: MG = or < 1.7 Last Admin: 12/27/18 10:21 Dose: 50 mls/hr Documented by: Sodium Chloride (Sodium Chloride 0.9%) 1,000 mls @ 75 mls/hr IV .[id number] [facility] Stop: 12/27/18 10:52 Last Admin: 12/27/18 08:23 Dose: Not Given Documented by: Iron Carb/Multivit/[employer]/Folic Acid (Multivitamin W/Minerals) 1 tab PO DAILY [facility] Last Admin: 12/27/18 08:20 Dose: 1 tab Documented by: Lisinopril (Zestril) 10 mg PO DAILY [facility] Last Admin: 12/27/18 08:20 Dose: 10 mg Documented by: Mirtazapine (Remeron) 15 mg PO HS [facility] Last Admin: 12/26/18 21:39 Dose: 15 mg Documented by: Omeprazole (Prilosec) 20 mg PO ACB [facility] Last Admin: 12/27/18 06:42 Dose: 20 mg Documented by: Ondansetron HCl (Zofran) 4 mg IV Q4-6HP PRN PRN Reason: Nausea And Vomiting Ondansetron HCl (Zofran Odt) 4 mg SL Q4-6HP PRN PRN Reason: Nausea Potassium Chloride (Klor-Con) 40 meq PO DAILYP PRN PRN Reason: K+ < 3.5 Senna/Docusate Sodium (Senna Plus Tablet) 1 tab PO HS [facility] Last Admin: 12/26/18 21:40 Dose: 1 tab Documented by: Sodium Chloride (Saline Flush) 10 ml IV Q8 [facility] Last Admin: 12/27/18 05:45 Dose: Not Given Documented by: Vitamin B Complex (Vitamin B Complex) 1 cap PO BID [facility] Stop: 12/29/18 09:01 Last Admin: 12/27/18 08:20 Dose: 1 cap Documented by: Medical - PN: A/P - Time Spent With Patient Total time spent is greater than 50% in coordination of care (as documented) at patient's floor/unit and/or counseling patient: 25 - 35 minutes (1) Alcohol withdrawal syndrome Status: Acute Current Visit: No (2) Alcohol use disorder Status: Acute Current Visit: Yes (3) Concussion Status: Acute Current Visit: Yes - Narrative A/P Narrative: Patient has been without Valium for over 24 hours. CIWA's declined. Continue use of comfort meds. Patient is stable with respect to withdrawal. I will sign off as patient's detox is complete. He will remain in the hospital another night due to medical comorbidity and weakness. Care coordinated and discussed with . Patient has f/u appointment with me in the Clinic Jan 03. Medical - PN: Qual - VTE Deep Vein Thrombosis/Pulmonary Embolism Present on Admission: No
--- NOTE | 2018-12-27 15:32 | Internal Med Progress Note ---
Medical - PN: Subj Patient information: Note initiated : 12/27/18 at 3:30 pm Service Date, if different from initiated Date: [] Patient: Elliott Traylor 63 y/o M admitted on 12/23/18 for "Alcohol Withdrawal". Chief Complaint: [] Interval history: Mr. Traylor is a 63 year old M with a history of long-standing alcohol dependence who presents to the ER for voluntary assistance with alcohol withdrawal. Patient has been drinking 1/5 of spiced rum every day. He however has become extremely distressed about his symptoms of withdrawal including tremors shaking nausea. He had a fall recently sustained a head injury which was evaluated in ER. He was at [facility] the day prior to presentation to help with withdrawal symptoms and was discharged on oral Ativan/antiemetics. He however was unable to cope with continued hallucinations/tremors/irritability and endorses to multiple episodes of seizures last night. He appears highly motivated to quit drinking and endorses that he has successfully done so in the recent past from May until September until he relapsed again. He denies family support, he lives alone. Initial work-up in the ER was essentially unremarkable. Patient was started on CIWA protocol with initial score 18. 12/24-patient doing remarkably well on alcohol withdrawal protocol. Stable he modynamics with improved psychomotor agitation/tremors/hallucinations. Continuing multivitamins/crystalloids and nutrition support. Continue PT OT. Transition to medical floor today. No overnight telemetry events. 12/25-patient is doing a lot better. Alert to self. No significant psychomotor agitation or anxiety. Frequent hallucinations. CIWA scores between 6 and 29. Tolerating diet. Stable labs and hemodynamics. Anticipate discharge once clinically improved in the next 48 hours 12/26-patient doing well. No overnight events. CIWA scores improving. Managed as per detox specialist. Stable labs hemodynamics and vitals. Continue close monitoring. Nutrition support/counseling and rehab 12/27-patient doing well. No overnight events. Low CIWA scores. Transferred out of unit. Off benzodiazepine. Continue nutrition support/physical therapy. Anticipate discharge in 24 hours. Case management to coordinate outpatient rehab resources to continue abstinence from alcohol. Patient appears quite motivated. - Constitutional Vitals: Vital Signs Temp Pulse Resp BP Pulse Ox 98.4 F 76 19 116/79 97 12/27/18 11:19 12/27/18 11:19 12/27/18 11:19 12/27/18 11:19 12/27/18 11:19 Period Temp Pulse Resp BP Sys/Killian Pulse Ox Last 24 Hr 97.0 F-98.4 F 71-78 16-21 114-141/71-93 96-100 Intake and Output 12/27/18 12/27/18 12/27/18 05:59 13:59 21:59 Intake Total 2413 2629 Output Total 1225 850 Balance 1188 1779 Intake & Output: Intake & Output 12/27/18 12/27/18 12/27/18 05:59 13:59 21:59 Intake Total 2413 2629 Output Total 1225 850 Balance 1188 1779 Intake: IV 1813 489 Sodium Chloride 0.9% 1,000 ml @ 1813 489 75 mls/hr IV .[id number] [facility] Rx#: [id number] Oral 600 2140 Output: Void Amount 1225 850 Other: Meal Lunch Percent of Meal Consumed 100% Feeding Ability Independent Urine Appearance Clear Urine Color Bright Yellow # Voids 1 1 General appearance: no acute distress - Head Additional comments: Alert oriented Nonlabored breathing Mild anxiety/tremors No lymphedema Medical - PN: Obj Da - Labs CBC & Chem 7: 12/27/18 03:54 12/27/18 03:54 Labs: Abnormal Lab Results 12/27/18 12/27/18 12/26/18 03:54 03:54 03:35 WBC RBC 3.98 L Hgb 13.1 L Hct 39.3 L RDW 18.4 H Plt Count 93 L MPV 6.5 L Nucleated RBCs Platelet Estimate Decreased A RBC Morphology Abnorm A Anisocytosis 1+ A Creatinine 1.4 H 1.3 H Glucose 108 H Total Protein 5.4 L Albumin 3.1 L Triglycerides 12/26/18 12/25/18 12/25/18 03:35 03:49 03:49 WBC 3.4 L RBC 3.64 L 3.77 L Hgb 12.1 L 12.5 L Hct 35.9 L 37.0 L RDW 17.8 H 17.5 H Plt Count 73 L 69 L MPV 6.6 L 6.6 L Nucleated RBCs 1 H Platelet Estimate Decreased A Decreased A RBC Morphology Abnorm A Anisocytosis 1+ A 1+ A Creatinine 1.3 H Glucose 129 H Total Protein 5.4 L Albumin 3.0 L Triglycerides 158 H Meds: Medications Acetaminophen (Tylenol) 650 mg PO Q4-6HP PRN PRN Reason: PAIN/FEVER > 101 Last Admin: 12/27/18 08:22 Dose: 650 mg Documented by: Buspirone HCl (Buspar) 5 mg PO BID [facility] Last Admin: 12/27/18 08:20 Dose: 5 mg Documented by: Clonidine HCl (Catapres) 0.1 mg PO Q4HP PRN PRN Reason: Alcohol Withdrawal Cyanocobalamin (Vitamin B-12) 1,000 mcg PO BID [facility] Stop: 12/28/18 09:01 Last Admin: 12/27/18 08:20 Dose: 1,000 mcg Documented by: Docusate Sodium (Colace) 100 mg PO BID [facility] Last Admin: 12/27/18 08:21 Dose: Not Given Documented by: Folic Acid (Folic Acid) 1 mg PO DAILY [facility] Last Admin: 12/27/18 08:20 Dose: 1 mg Documented by: Fondaparinux (Arixtra) 2.5 mg SQ DAILY [facility] Last Admin: 12/27/18 08:19 Dose: 2.5 mg Documented by: Gabapentin (Neurontin) 300 mg PO Q6 [facility] Last Admin: 12/27/18 11:17 Dose: 300 mg Documented by: Guaifenesin/Codeine Phosphate (Robitussin Ac) 10 ml PO Q4HP PRN PRN Reason: Cough Hydrochlorothiazide (Oretic) 12.5 mg PO DAILY [facility] Last Admin: 12/27/18 08:20 Dose: 12.5 mg Documented by: Hydroxyzine HCl (Atarax) 25 mg PO TID [facility] Last Admin: 12/27/18 14:22 Dose: 25 mg Documented by: Potassium Chloride 40 meq/ (Dextrose) 520 mls @ 130 mls/hr IV UD PRN PRN Reason: K+ = or < 3.5 Magnesium Sulfate (Magnesium Sulfate) 2 gm in 50 mls @ 50 mls/hr IV UD PRN PRN Reason: MG = or < 1.7 Last Admin: 12/27/18 10:21 Dose: 50 mls/hr Documented by: Iron Carb/Multivit/Ash Kier Boiler/Folic Acid (Multivitamin W/Minerals) 1 tab PO DAILY [facility] Last Admin: 12/27/18 08:20 Dose: 1 tab Documented by: Lisinopril (Zestril) 10 mg PO DAILY [facility] Last Admin: 12/27/18 08:20 Dose: 10 mg Documented by: Mirtazapine (Remeron) 15 mg PO [facility] Last Admin: 12/26/18 21:39 Dose: 15 mg Documented by: Omeprazole (Prilosec) 20 mg PO ACB [facility] Last Admin: 12/27/18 06:42 Dose: 20 mg Documented by: Ondansetron HCl (Zofran) 4 mg IV Q4-6HP PRN PRN Reason: Nausea And Vomiting Ondansetron HCl (Zofran Odt) 4 mg SL Q4-6HP PRN PRN Reason: Nausea Potassium Chloride (Klor-Con) 40 meq PO DAILYP PRN PRN Reason: K+ < 3.5 Senna/Docusate Sodium (Senna Plus Tablet) 1 tab PO [facility] Last Admin: 12/26/18 21:40 Dose: 1 tab Documented by: Sodium Chloride (Saline Flush) 10 ml IV Q8 [facility] Last Admin: 12/27/18 12:28 Dose: Not Given Documented by: Vitamin B Complex (Vitamin B Complex) 1 cap PO BID [facility] Stop: 12/29/18 09:01 Last Admin: 12/27/18 08:20 Dose: 1 cap Documented by: Medical - PN: A/P - Time Spent With Patient Total time spent is greater than 50% in coordination of care (as documented) at patient's floor/unit and/or counseling patient: 15 - 24 minutes (1) Delirium tremens Status: Acute Assessment and plan: * Severe alcohol withdrawal with delirium tremens-clinically resolved. Minimal tremors along with anxiety. Transfer out of unit to medical floor. Continue physical therapy/nutrition support. His management to coordinate outpatient rehab resources to maintain abstinence * History of [id number] on MONSE inhibitor/thiazide * History of peptic ulcer disease continue PPI * Tobacco dependence-continue counseling * Anxiety disorder continue mirtazapine * Full code * Prophylaxis switched to fondaparinux in light of low platelets Plan * Transfer to medical floor * Pre-existing medical condition management on home meds * PT OT nutrition support * Anticipate discharge in 24 hours Current Visit: Yes (2) Alcohol withdrawal delirium Status: Acute Current Visit: Yes Medical - PN: Qual - VTE Deep Vein Thrombosis/Pulmonary Embolism Present on Admission: No
[2018-12-27] MEDS: MIRTAZAPINE 15 MG TABLET PO SCH (21:15)
[2018-12-27] MEDS: SENNOSIDES/DOCUSATE SODIUM 1 TAB TABLET PO SCH (21:15)
[2018-12-28] MEDS: GABAPENTIN 300 MG CAPSULE PO SCH ×5 (00:07→23:29)
[2018-12-28] MEDS: 0.9 % SODIUM CHLORIDE 10 ML SYRINGE IV SCH ×3 (05:05→20:51)
[2018-12-28 05:50] LABS: Hematocrit 40.8 % (41.0-55.0); Hemoglobin 13.5 g/dL (13.5-16.5); Mean Cell Volume 98.6 fL (80.0-100.0); Mean Platelet Volume 6.4 fL (7.4-10.4); Platelet Count 105 K/mcL (140-440); RBC 4.14 M/mcL (4.50-5.90); Red Cell Distribution Width 17.8 % (11.5-14.5); WBC 5.7 K/mcL (4.5-11.0)
[2018-12-28 06:32] LABS: ALT/SGPT 12 U/l (0-40); AST/SGOT 12 U/l (0-37); Albumin 3.8 gm/dL (3.2-5.2); Albumin/Globulin Ratio 1.3 (1.0-2.3); Alkaline Phosphatase 78 U/L (39-117); Bilirubin,Direct < 0.2 mg/dL (0.0-0.3); Bilirubin,Total 0.3 mg/dL (0.0-1.0); Blood Urea Nitrogen 18 mg/dl (8-23); Calcium 9.7 mg/dl (8.6-10.4); Carbon Dioxide 25 mmol/L (22-30); Chloride 103 mmol/L (96-108); Globulin 2.9 gm/dL (2.2-3.7); Glomerular Filtration Rate 53; Glucose 101 mg/dL (70-105); Lactate Dehydrogenase 177 U/L (94-250); Phosphorous 3.9 mg/dL (2.7-4.5); Triglycerides 208 mg/dl (<150); Uric Acid 4.6 mg/dL (2.5-8.0)
[2018-12-28 06:53] LABS: Anisocytosis 1+ (NONE SEEN); Eosinophils % (Manual) 4 % (0-7); Lymphocytes % 26 % (15-49); Monocytes % (Manual) 10 % (1-12); Platelet Estimate DECREASED (NORMAL); RBC Morphology ABNORM (NORMAL); Segmented Neutrophils % 60 % (38-78)
[2018-12-28] MEDS: OMEPRAZOLE 20 MG CAPSULE PO SCH (07:28)
[2018-12-28] MEDS: FONDAPARINUX SODIUM 2.5 MG/0.5 ML SYRINGE SQ SCH (08:57)
[2018-12-28] MEDS: FOLIC ACID 1 MG TABLET PO SCH (08:58)
[2018-12-28] MEDS: CYANOCOBALAMIN (VITAMIN B-12) 500 MCG TABLET PO SCH (08:58)
[2018-12-28] MEDS: hydrOXYzine 25 MG TABLET PO SCH ×3 (08:59→20:50)
[2018-12-28] MEDS: VITAMIN B COMPLEX 1 CAPSULE PO SCH ×2 (08:59→20:48)
[2018-12-28] MEDS: HYDROCHLOROTHIAZIDE 12.5 MG CAPSULE PO SCH (09:00)
[2018-12-28] MEDS: DOCUSATE SODIUM 100 MG CAPSULE PO SCH ×2 (09:00→20:50)
[2018-12-28] MEDS: busPIRone 5 MG TABLET PO SCH ×2 (09:00→20:49)
[2018-12-28] MEDS: MULTIVIT,THER IRON,CA,FA & MIN 1 TABLET PO SCH (09:00)
[2018-12-28] MEDS: LISINOPRIL 10 MG TABLET PO SCH (09:01)
--- NOTE | 2018-12-28 09:42 | Internal Med Progress Note ---
Medical - PN: Subj Patient information: Note initiated : 12/28/18 at 9:22 am Service Date, if different from initiated Date: [] Patient: Elliott Traylor 63 y/o M admitted on 12/23/18 for "Alcohol Withdrawal". Chief Complaint: [] Interval history: Mr. Traylor is a 63 year old M with a history of long-standing alcohol dependence who presents to the ER for voluntary assistance with alcohol withdrawal. Patient has been drinking 1/5 of spiced rum every day. He however has become extremely distressed about his symptoms of withdrawal including tremors shaking nausea. He had a fall recently sustained a head injury which was evaluated in ER. He was at [facility] the day prior to presentation to help with withdrawal symptoms and was discharged on oral Ativan/antiemetics. He however was unable to cope with continued hallucinations/tremors/irritability and endorses to multiple episodes of seizures last night. He appears highly motivated to quit drinking and endorses that he has successfully done so in the recent past from May until September until he relapsed again. He denies family support, he lives alone. Initial work-up in the ER was essentially unremarkable. Patient was started on CIWA protocol with initial score 18. 12/24-patient doing remarkably well on alcohol withdrawal protocol. Stable he modynamics with improved psychomotor agitation/tremors/hallucinations. Continuing multivitamins/crystalloids and nutrition support. Continue PT OT. Transition to medical floor today. No overnight telemetry events. 12/25-patient is doing a lot better. Alert to self. No significant psychomotor agitation or anxiety. Frequent hallucinations. CIWA scores between 6 and 29. Tolerating diet. Stable labs and hemodynamics. Anticipate discharge once clinically improved in the next 48 hours 12/26-patient doing well. No overnight events. CIWA scores improving. Managed as per detox specialist. Stable labs hemodynamics and vitals. Continue close monitoring. Nutrition support/counseling and rehab 12/27-patient doing well. No overnight events. Low CIWA scores. Transferred out of unit. Off benzodiazepine. Continue nutrition support/physical therapy. Anticipate discharge in 24 hours. Case management to coordinate outpatient rehab resources to continue abstinence from alcohol. Patient appears quite motivated. 12/28-patient doing well. Persistent lightheadedness dizziness and restlessness however much improved since previous day.anticipate discharge in 24 hours. - Constitutional Vitals: Vital Signs Temp Pulse Resp BP Pulse Ox 97.9 F 81 14 137/89 95 12/28/18 08:00 12/28/18 08:00 12/28/18 08:00 12/28/18 08:00 12/28/18 08:00 Period Temp Pulse Resp BP Sys/Killian Pulse Ox Last 24 Hr 97.5 F-98.6 F 76-85 14-19 116-140/79-90 77-97 Intake and Output 12/27/18 12/28/18 12/28/18 21:59 05:59 13:59 Intake Total 1100 400 Balance 1100 400 Weight 234 lb 8 oz Intake & Output: Intake & Output 12/27/18 12/28/18 12/28/18 21:59 05:59 13:59 Intake Total 1100 400 Balance 1100 400 Weight 234 lb 8 oz Intake: Oral 1100 400 Other: Meal noc snack Nourishment/Supplement Percent of Meal Consumed 100% 100% Urine Appearance Clear Urine Color Bright Yellow Urine Odor Normal Stool Size Large Stool Color Brown Stool Consistency Formed # Voids 3 4 # Bowel Movements 1 General appearance: no acute distress Exam: tremors Non labored breathing No anxiety Medical - PN: Obj Da - Labs CBC & Chem 7: 12/28/18 04:34 12/28/18 04:34 Labs: Abnormal Lab Results 12/28/18 12/28/18 12/27/18 04:34 04:34 03:54 RBC 4.14 L Hgb Hct 40.8 L RDW 17.8 H Plt Count 105 L MPV 6.4 L Nucleated RBCs Platelet Estimate Decreased A RBC Morphology Abnorm A Anisocytosis 1+ A Creatinine 1.4 H 1.4 H Glucose Total Protein Albumin Triglycerides 208 H 12/27/18 12/26/18 12/26/18 03:54 03:35 03:35 RBC 3.98 L 3.64 L Hgb 13.1 L 12.1 L Hct 39.3 L 35.9 L RDW 18.4 H 17.8 H Plt Count 93 L 73 L MPV 6.5 L 6.6 L Nucleated RBCs 1 H Platelet Estimate Decreased A Decreased A RBC Morphology Abnorm A Abnorm A Anisocytosis 1+ A 1+ A Creatinine 1.3 H Glucose 108 H Total Protein 5.4 L Albumin 3.1 L Triglycerides Meds: Medications Acetaminophen (Tylenol) 650 mg PO Q4-6HP PRN PRN Reason: PAIN/FEVER > 101 Last Admin: 12/27/18 08:22 Dose: 650 mg Documented by: Buspirone HCl (Buspar) 5 mg PO BID [facility] Last Admin: 12/28/18 09:00 Dose: 5 mg Documented by: Clonidine HCl (Catapres) 0.1 mg PO Q4HP PRN PRN Reason: Alcohol Withdrawal Docusate Sodium (Colace) 100 mg PO BID [facility] Last Admin: 12/28/18 09:00 Dose: 100 mg Documented by: Folic Acid (Folic Acid) 1 mg PO DAILY [facility] Last Admin: 12/28/18 08:58 Dose: 1 mg Documented by: Fondaparinux (Arixtra) 2.5 mg SQ DAILY [facility] Last Admin: 12/28/18 08:57 Dose: 2.5 mg Documented by: Gabapentin (Neurontin) 300 mg PO Q6 [facility] Last Admin: 12/28/18 05:05 Dose: 300 mg Documented by: Guaifenesin/Codeine Phosphate (Robitussin Ac) 10 ml PO Q4HP PRN PRN Reason: Cough Hydrochlorothiazide (Oretic) 12.5 mg PO DAILY [facility] Last Admin: 12/28/18 09:00 Dose: 12.5 mg Documented by: Hydroxyzine HCl (Atarax) 25 mg PO TID [facility] Last Admin: 12/28/18 08:59 Dose: 25 mg Documented by: Potassium Chloride 40 meq/ (Dextrose) 520 mls @ 130 mls/hr IV UD PRN PRN Reason: K+ = or < 3.5 Magnesium Sulfate (Magnesium Sulfate) 2 gm in 50 mls @ 50 mls/hr IV UD PRN PRN Reason: MG = or < 1.7 Last Admin: 12/27/18 10:21 Dose: 50 mls/hr Documented by: Iron Carb/Multivit/Kaplan/Folic Acid (Multivitamin W/Minerals) 1 tab PO DAILY [facility] Last Admin: 12/28/18 09:00 Dose: 1 tab Documented by: Lisinopril (Zestril) 10 mg PO DAILY [facility] Last Admin: 12/28/18 09:01 Dose: 10 mg Documented by: Mirtazapine (Remeron) 15 mg PO HS [facility] Last Admin: 12/27/18 21:15 Dose: 15 mg Documented by: Omeprazole (Prilosec) 20 mg PO ACB [facility] Last Admin: 12/28/18 07:28 Dose: 20 mg Documented by: Ondansetron HCl (Zofran) 4 mg IV Q4-6HP PRN PRN Reason: Nausea And Vomiting Ondansetron HCl (Zofran Odt) 4 mg SL Q4-6HP PRN PRN Reason: Nausea Potassium Chloride (Klor-Con) 40 meq PO DAILYP PRN PRN Reason: K+ < 3.5 Senna/Docusate Sodium (Senna Plus Tablet) 1 tab PO HS [facility] Last Admin: 12/27/18 21:15 Dose: 1 tab Documented by: Sodium Chloride (Saline Flush) 10 ml IV Q8 [facility] Last Admin: 12/28/18 05:05 Dose: 10 ml Documented by: Vitamin B Complex (Vitamin B Complex) 1 cap PO BID [facility] Stop: 12/29/18 09:01 Last Admin: 12/28/18 08:59 Dose: 1 cap Documented by: Medical - PN: A/P - Time Spent With Patient Total time spent is greater than 50% in coordination of care (as documented) at patient's floor/unit and/or counseling patient: 15 - 24 minutes (1) Delirium tremens Status: Acute Assessment and plan: * Severe alcohol withdrawal with delirium tremens-clinical improvement noted * Deconditioning-aggressive PT OT. Anticipating 24 hours discharge * History of [id number] on MONSE inhibitor/thiazide * History of peptic ulcer disease continue PPI * Tobacco dependence-continue counseling * Anxiety disorder continue mirtazapine * Full code * Prophylaxis switched to fondaparinux in light of low platelets Plan * Possible discharge in 24 hours * Pre-existing medical condition management on home meds * Continue nutrition support/physical therapy Current Visit: Yes (2) Alcohol withdrawal delirium Status: Acute Current Visit: Yes Medical - PN: Qual - VTE Deep Vein Thrombosis/Pulmonary Embolism Present on Admission: No
[2018-12-28] MEDS: ACETAMINOPHEN 325 MG TABLET PO PRN ×3 (12:54→20:50)
[2018-12-28] MEDS: SENNOSIDES/DOCUSATE SODIUM 1 TAB TABLET PO SCH (20:50)
[2018-12-28] MEDS: MIRTAZAPINE 15 MG TABLET PO SCH (20:50)
[2018-12-28] MEDS: MAGNESIUM SULFATE 2 GM/50 ML BAG IV PRN (22:06)
[2018-12-29] MEDS: 0.9 % SODIUM CHLORIDE 10 ML SYRINGE IV SCH (06:01)
[2018-12-29] MEDS: GABAPENTIN 300 MG CAPSULE PO SCH ×2 (06:01→12:39)
[2018-12-29] MEDS: OMEPRAZOLE 20 MG CAPSULE PO SCH (08:16)
[2018-12-29] MEDS: VITAMIN B COMPLEX 1 CAPSULE PO SCH (08:16)
[2018-12-29] MEDS: MULTIVIT,THER IRON,CA,FA & MIN 1 TABLET PO SCH (08:17)
[2018-12-29] MEDS: DOCUSATE SODIUM 100 MG CAPSULE PO SCH (08:17)
[2018-12-29] MEDS: busPIRone 5 MG TABLET PO SCH (08:17)
[2018-12-29] MEDS: FONDAPARINUX SODIUM 2.5 MG/0.5 ML SYRINGE SQ SCH (08:17)
[2018-12-29] MEDS: FOLIC ACID 1 MG TABLET PO SCH (08:18)
--- NOTE | 2018-12-29 10:06 | Discharge Summary ---
Medical - DS: Prov Patient information: Note initiated : 12/29/18 at 10:01 am Service Date, if different from initiated Date: [] Patient: Elliott Traylor 63 y/o M admitted on 12/23/18 for "Alcohol Withdrawal". Chief Complaint: [] Date of admission: 12/23/18 13:29 Discharge date: 12/29/18 Primary care physician: Nikki Bee Admitting clinician: Yariel Jaime Consults: 12/23/18 12:32 Consult to Physician [CONS] Stat Comment: Consulting Provider: Yariel Jaime Reason For Exam: Physician to Consult 12/23/18 13:33 Consult to Physician [CONS] Routine Comment: Consulting Provider: Gerri Warren Reason For Exam: Physician to Consult Attending physician on discharge: Jeannine Pike Medical - DS: Meds - Discharge Medications Prescriptions: Gabapentin [Neurontin] 300 mg PO TID #90 cap Mirtazapine [Remeron] 15 mg PO HS #30 tab Active and Home Medications: Home Medications Omeprazole [PriLOSEC] 20 mg PO ACB 05/24/15 [History Confirmed 12/23/18 Last Taken 12/23/18] LORazepam [Ativan] 1 mg PO Q4HP PRN #10 tab 05/23/18 [Rx Confirmed 12/23/18 Last Taken 12/16/18] Ondansetron [Zofran ODT] 4 mg SL Q4-6HP PRN #10 tab 05/23/18 [Rx Confirmed 12/23/18 Last Taken 12/23/18] Folic Acid 1 mg PO DAILY 12/23/18 [History Confirmed 12/23/18 Last Taken 12/22/18] Lisinopril/Hydrochlorothiazide [Lisinopril-Hctz 10-12.5 mg Tab] 1 each PO DAILY 12/23/18 [History Confirmed 12/23/18 Last Taken 12/21/18] busPIRone [Buspar] 5 mg PO BID 12/23/18 [History Confirmed 12/23/18 Last Taken 12/22/18] hydrOXYzine [Atarax] 25 mg PO TID 12/23/18 [History Confirmed 12/23/18 Last Taken 12/22/18] Medical - DS: Hosp Hospital Course: Mr. Traylor is a 63 year old M with a history of long-standing alcohol dependence who presents to the ER for voluntary assistance with alcohol withdrawal. Patient has been drinking 1/5 of spiced rum every day. He however has become extremely distressed about his symptoms of withdrawal including tremors shaking nausea. He had a fall recently sustained a head injury which was evaluated in ER. He was at [facility] the day prior to presentation to help with withdrawal symptoms and was discharged on oral Ativan/antiemetics. He however was unable to cope with continued hallucinations/tremors/irritability and endorses to multiple episodes of seizures last night. He appears highly motivated to quit drinking and endorses that he has successfully done so in the recent past from May until September until he relapsed again. He denies family support, he lives alone. Initial work-up in the ER was essentially unremarkable. Patient was started on CIWA protocol with initial score 18. 12/24-patient doing remarkably well on alcohol withdrawal protocol. Stable hemodynamics with improved psychomotor agitation/tremors/hallucinations. Continuing multivitamins/crystalloids and nutrition support. Continue PT OT. Transition to medical floor today. No overnight telemetry events. 12/25-patient is doing a lot better. Alert to self. No significant psychomotor agitation or anxiety. Frequent hallucinations. CIWA scores between 6 and 29. Tolerating diet. Stable labs and hemodynamics. Anticipate discharge once clinically improved in the next 48 hours 12/26-patient doing well. No overnight events. CIWA scores improving. Managed as per detox specialist. Stable labs hemodynamics and vitals. Continue close monitoring. Nutrition support/counseling and rehab 12/27-patient doing well. No overnight events. Low CIWA scores. Transferred out of unit. Off benzodiazepine. Continue nutrition support/physical therapy. Anticipate discharge in 24 hours. Case management to coordinate outpatient rehab resources to continue abstinence from alcohol. Patient appears quite motivated. 12/28-patient doing well. Persistent lightheadedness dizziness and restlessness however much improved since previous day.anticipate discharge in 24 hours. 12/29-patient remained hospitalized for one further night. Appetite was good on the morning of 12/29. He reported to nursing he felt well without lightheadedness. On 12/28 he had worked with physical therapy and ambulated 350 feet without problems, been ambulating without nursing. At this point, he has met goals for discharge will be discharged home. He has follow-up set for the sixth of this month with behavioral health. Alcohol withdrawal is completed, he does not need prescriptions for benzodiazepines at discharge. He had been started on gabapentin and Remeron in the hospital, those were continued. Discharge diagnosis: Alcohol withdrawal with delerium - Time Spent with Patient Total time spent providing and/or coordinating discharge services: Greater than 30 minutes Medical - DS: Exam - Constitutional Vitals: Vital Signs Temp Pulse Resp BP BP Pulse Ox 12/29/18 08:44 80 114/72 12/29/18 07:12 97.6 F 69 18 95/61 93 12/29/18 03:42 97.3 F 71 17 96/58 94 12/28/18 23:31 97.6 F 87 16 114/79 93 12/28/18 18:57 97.9 F 87 16 121/81 96 12/28/18 16:00 97.8 F 88 16 122/67 97 12/28/18 12:00 98.5 F 90 14 128/80 96 Intake and Output 12/28/18 12/29/18 12/29/18 21:59 05:59 13:59 Intake Total 600 1500 Output Total 550 Balance 600 950 Intake: IV 50 Oral 600 1450 Output: Void Amount 550 Other: Meal tuna sandwich Percent of Meal Consumed 100% Urine Color Bright Yellow # Voids 5 Weight 237 lb 8 oz General appearance: no acute distress - Respiratory Respiratory exam: Present: normal respiratory exam - Cardiovascular Cardiovascular exam: Present: normal rate and rhythm - GI/Abdominal GI/Abdominal exam: Present: normal bowel sounds, soft. Absent: distended, tenderness - Extremities Exam Extremities exam: Present: pedal edema (Trace) - Neurological Exam Neurological exam: Present: alert, oriented X3 Additional comments: No tremor - Psychiatric Psychiatric exam: Present: normal affect Additional comments: No hallucinations - Expanded Psychiatric Exam Focused psych exam: Absent: psychomotor agitation Medical - DS: Data - Impressions Echocardiogram Left ventricle is normal in size. The LV birch are upper normal limit in thickness. Left ventricular systolic function is normal, ejection fraction 60%. The IVC inspiratory collapse is normal at greater than 50%. Doppler findings suggest normal pulmonary artery pressures. Technically difficult/supine only study Medical - DS: A/P - Patient/Caregiver Discharge Instructions Activity: increase activity as tolerated Diet: Regular Diet - Follow up Plan Follow up with: Gerri Warren DO [Physician] - 01/03/19 4:00 pm (Please check in at 3:30 am) Simona Sutton ARNP [Nurse Practitioner] - 01/01/19 10:00 am (Nikki Bee was not available for this appointment.) Disposition: Home, Self-Care Prognosis: Fair Rehab Potential: Fair Overall status at discharge: patient is progressing back to baseline Medical - DS: Qual - VTE Deep Vein Thrombosis/Pulmonary Embolism Present on Admission: No
[2018-12-29] MEDS: hydrOXYzine 25 MG TABLET PO SCH (12:32)
[2018-12-29] MEDS: LISINOPRIL 10 MG TABLET PO SCH (12:32)
[2018-12-29] MEDS: HYDROCHLOROTHIAZIDE 12.5 MG CAPSULE PO SCH (12:32)
[2018-12-29 23:34] LABS: Cannabinoid Confirmation POSITIVE (N)
== END 2018-12-29 14:55 | disposition home or self-care (01) | DRG 897 ==
LOC: ED 09:51 → ICU 13:29 → MEDSUR 12-24 11:16 → ICU 12-25 18:15 → MEDSUR 12-27 10:50
PROVIDERS: ADMIT Internal Medicine; ATTEND Internal Medicine